=== PATIENT | female | born 1960 | race Asian ===

== ENCOUNTER → 2016-03-11 | Outpatient (CLI) | payer BC ==
[~2016-03-11] MED LIST: ASPEC81 PO; ATOR-24 PO; CLOP1TAB15 PO; DVN160125 PO; ISOS120T5 PO; METH-589 PO; NIFE30TA83 PO; PROP20TA67 PO
[2016-03-11 16:55] LABS: BLOOD UREA NITROGEN 20 mg/dl (7-18); BUN/CREATININE RATIO 18.2 (10-20); CALCIUM 9.1 mg/dl (8.5-10.1); CARBON DIOXIDE 30 mmol/L (21-32); CHLORIDE 105 mmol/L (98-107); GLUCOSE 217 mg/dl (70-99); POTASSIUM 3.1 mmol/L (3.5-5.1); SODIUM 143 mmol/L (136-145)
== END | disposition home or self-care (01) ==
LOC: C.LAB1850 15:50
PROVIDERS: ATTEND Internal Medicine
DX: Z00.00 Encounter for general adult medical examination without abnormal findings (principal); I10 Essential (primary) hypertension; E78.5 Hyperlipidemia, unspecified

== ENCOUNTER → 2016-08-28 | Outpatient (CLI) | payer BC ==
[2016-08-28 12:03] LABS: BASO % 0.7 %; BASO ABS # 0.04 K/uL (0-0.2); COMPLETE YES; HEMATOCRIT 43.6 % (37-47); IG% 0.2 %; LYMPH % 38.1 %; LYMPH ABS # 2.28 K/uL (1.2-3.4); MEAN CELL VOLUME 90.6 fL (80-100); MEAN CORPUSCULAR HEMOGLOBIN 31.4 pg (25-34); MEAN CORPUSCULAR HGB CONC 34.6 g/dl (32-36); MEAN PLATELET VOLUME 10.1 fL (7.4-10.4); MONO % 4.5 %; NEUT % 54.5 %; PLATELET COUNT 240 K/uL (130-400); RED BLOOD COUNT 4.81 M/uL (4.2-5.4); WHITE BLOOD COUNT 5.98 K/uL (4.8-10.8)
[2016-08-28 12:25] LABS: ALT/SGPT 30 U/L (12-78); AST/SGOT 15 U/L (15-37); BLOOD UREA NITROGEN 13 mg/dl (7-18); CALCIUM 9.3 mg/dl (8.5-10.1); CARBON DIOXIDE 28 mmol/L (21-32); CHLORIDE 106 mmol/L (98-107); CHOLESTEROL 123 mg/dl (0-200); CREATININE 0.77 mg/dl (0.60-1.20); GLUCOSE 133 mg/dl (70-99); POTASSIUM 3.7 mmol/L (3.5-5.1); SODIUM 143 mmol/L (136-145); TRIGLYCERIDES 157 mg/dl (0-150); VERY LOW DENSITY LIPOPROT CALC 31 mg/dl
[2016-08-28 12:35] LABS: CHOLESTEROL/HDL RATIO 3.3; HDL CHOLESTEROL 37 mg/dl; LDL CHOLESTEROL CALCULATED 55 mg/dl
== END | disposition home or self-care (01) ==
LOC: C.LAB1850 10:28
PROVIDERS: ATTEND Physician Assistant
DX: I10 Essential (primary) hypertension (principal); E05.90 Thyrotoxicosis, unspecified without thyrotoxic crisis or storm; E78.5 Hyperlipidemia, unspecified

== ENCOUNTER → 2016-09-04 | Outpatient (CLI) | payer BC ==
--- NOTE | 2016-09-07 14:30 | MAMMOGRAPHY REPORT ---
BILATERAL FIRST EVER DIGITAL SCREENING MAMMOGRAM TOMOSYNTHESIS WITH CAD: 09/04/2016 CLINICAL HISTORY: Baseline examination. TECHNIQUE: Breast tomosynthesis in addition to standard 2D mammography was performed. Current study was also evaluated with a Computer Aided Detection (CAD) system. COMPARISON: No prior exams were available for comparison. BREAST COMPOSITION: The tissue of both breasts is heterogeneously dense, which may obscure small mas ses. FINDINGS: No suspicious masses, calcifications, or areas of architectural distortion are noted in ei ther breast. IMPRESSION: ACR BI-RADS CATEGORY 1: NEGATIVE There is no mammographic evidence of malignancy. A 1 year screening mammogram is recommended. The pa tient will receive written notification of the results. Approximately 10% of breast cancers are not detected with mammography. A negative mammographic report should not delay biopsy if a clinically suggestive mass is present. Randa Fuentes M.D. ah/:09/04/2016 16:26:11 Electrician: Daly JC)(Jenn), [facility] letter sent: Normal 1/2 BI-RADS Code: ACR BI-RADS Category 1: Negative
== END | disposition home or self-care (01) ==
LOC: C.MAMM 15:43
PROVIDERS: ATTEND Physician Assistant
DX: Z12.31 Encounter for screening mammogram for malignant neoplasm of breast (principal)

== ENCOUNTER → 2017-04-15 | Outpatient (CLI) | payer OTHER ==
[2017-04-15 09:33] LABS: BASO % 0.7 %; BASO ABS # 0.04 K/uL (0-0.2); EOS % 2.2 %; EOS ABS # 0.12 K/uL (0-0.5); HEMATOCRIT 45.3 % (37-47); HEMOGLOBIN 15.9 g/dL (12.0-16.0); IG# 0.02 K/uL (0.00-0.02); LYMPH % 38.9 %; LYMPH ABS # 2.17 K/uL (1.2-3.4); MEAN CELL VOLUME 89.9 fL (80-100); MEAN CORPUSCULAR HEMOGLOBIN 31.5 pg (25-34); MEAN CORPUSCULAR HGB CONC 35.1 g/dl (32-36); MEAN PLATELET VOLUME 10.1 fL (7.4-10.4); MONO % 4.3 %; MONO ABS # 0.24 K/uL (0.11-0.59); NEUT % 53.5 %; NEUT ABS # 2.99 K/uL (1.4-6.5); PLATELET COUNT 265 K/uL (130-400); RED CELL DISTRIBUTION WIDTH CV 12.8 % (11.5-14.5); RED CELL DISTRIBUTION WIDTH SD 41.6 fL (36.4-46.3); WHITE BLOOD COUNT 5.58 K/uL (4.8-10.8)
[2017-04-15 09:52] LABS: ALT/SGPT 37 U/L (12-78); AST/SGOT 15 U/L (15-37); BLOOD UREA NITROGEN 21 mg/dl (7-18); CALCIUM 9.1 mg/dl (8.5-10.1); CARBON DIOXIDE 29 mmol/L (21-32); CHOLESTEROL 140 mg/dl (0-200); CREATININE 0.84 mg/dl (0.60-1.20); GLUCOSE 230 mg/dl (70-99); POTASSIUM 3.5 mmol/L (3.5-5.1); SODIUM 138 mmol/L (136-145)
[2017-04-15 10:03] LABS: HEMOGLOBIN A1C 7.6 % (4.5-5.6); LDL CHOLESTEROL CALCULATED 70 mg/dl
== END | disposition home or self-care (01) ==
LOC: C.LAB1850 07:42
PROVIDERS: ATTEND Internal Medicine
DX: R73.9 Hyperglycemia, unspecified (principal)

== ENCOUNTER → 2017-05-14 | Outpatient (CLI) | payer OTHER | END | disposition home or self-care (01) | LOC: C.LAB1850 08:24 | PROVIDERS: ATTEND Internal Medicine | DX: E78.5 Hyperlipidemia, unspecified (principal) ==

== ENCOUNTER → 2017-07-15 | Outpatient (CLI) | payer OTHER ==
[2017-07-16 05:50] LABS: HEMOGLOBIN A1C 6.7 % (4.5-5.6)
== END | disposition home or self-care (01) ==
LOC: C.LAB1850 15:48
PROVIDERS: ATTEND Internal Medicine
DX: E78.5 Hyperlipidemia, unspecified (principal)

== ENCOUNTER 2020-07-02 10:42 | Observation (INO) ==
[2020-07-02] MEDS ORDERED: SODIUM CHLORIDE 0.9% 500 ML IV STA (10:58)
[2020-07-02] MEDS ORDERED: ASPIRIN CHEW 324 MG PO STA (10:58)
[2020-07-02] MEDS ORDERED: ONDANSETRON INJ 2 MG/ML 2 ML VIAL IV STA (10:58)
[2020-07-02] MEDS ORDERED: METOPROLOL TARTRATE 1 MG/ML VIAL IV PRN ×2 (11:07→13:03)
--- NOTE | 2020-07-02 11:11 | Emergency Department Note ---
Impression & Plan Paroxysmal atrial fibrillation, Coronary artery disease, Chest pain ED Provider Note NAME: DARNELL MILLER AGE: 59 SEX: F : 1960 ARRIVES VIA: Walk-In INFORMANT: Patient ED PROVIDER(S): Shekhar Zurita DO CHIEF COMPLAINT: chest pain HPI: Patient is a 59-year-old female that presents to the ER for chest pain. Symptoms started around 630 this morning. She felt her heart racing had diffuse chest tightness but worse over the left. Patient admits to some paresthesias on feeling of her right. Forearm. She has shortness of breath with this. She took her morning meds help control her A. fib. Shortly after this she did throw up. She do not see any pills in this. She notes this feels like her previous NM done in 2018. Denies any dysuria urgency or frequency. No swelling of the legs. No other exacerbating or remitting factors. ROS: See above HPI for pertinent positives & negatives. A total of 10 systems reviewed and were otherwise negative. PAST MEDICAL HISTORY:See Below PAST SURGICAL HISTORY:See Below FAMILY HISTORY:See Below SOCIAL HISTORY:See Below HOME MEDICATIONS:See Below ALLERGIES:See Below VITALS:See Below PHYSICAL EXAMINATION: GENERAL: Sitting up in bed, alert, well appearing, well nourished, no distress, non-toxic EYE EXAM: normal conjunctiva. OROPHARYNX: no exudate, no erythema, lips, buccal mucosa, and tongue normal and mucous membranes are moist NECK: supple, no nuchal rigidity, no adenopathy, non-tender LUNGS: Clear to auscultation. Normal chest wall mechanics HEART: Tachycardic and irregular regular, S1 normal and S2 normal ABDOMEN: abdomen soft, non-tender, normo-active bowel sounds, no masses, no rebound or guarding. BACK: Back is symmetrical on inspection and there is no deformity, no midline tenderness, no CVA tenderness. SKIN: no rashes and no bruising UPPER EXTREMITIES: upper extremities are grossly normal. LOWER EXTREMITIES: No pitting edema. Calves are equal bilateral NEURO EXAM: Normal sensorium, cranial nerves II-XII grossly intact, normal speech, no gross weakness of arms, no gross weakness of legs. MEDICAL DECISION MAKING: Patient is a 59-year-old female with a personal story of NM, hypertension, hyperlipidemia, diabetes who presents the ER for feeling her heart race associate with chest pain shortness of breath. IV was established blood work was obtained. Labs show no significant leukocytosis or anemia. BMP with mild hypokalemia. LFTs bilirubin was unremarkable. Troponin was negative. Lipase was unremarkable. Influenza was negative. Patient was given IV Lopressor and heart rate trended down to the low 100s for 130s to 140s. EKG with new ST changes in the inferior and lateral's which I do favor is rate related. Troponin was negative. She is given aspirin. Chest pain resolved. Discussed with the hospitalist admitted for further work-up. Triage Nursing notes reviewed. Limited review of prior medical records performed Vital Signs: reviewed and remarkable for tachycardic Differential diagnosis: A. fib RVR rate of 134 Normal axis Inferior Q waves QTC 480 ST depressions in inferior leads and lateral leads ER treatment provided: See below Diagnostics interpreted by me: ECG: A. fib RVR rate of 134 ST depressions in the inferior leads Inferior Q waves ST waves depressed in lateral leads Cardiac Monitoring: An order was placed for continuous cardiac monitoring. The monitor shows a rate of 135 with sinus rhythm. Laboratory studies: As stated above and show below. Imaging studies: See below Consultation(s): Discussed with the hospitalist for further evaluation Procedures: none Critical Care: I have personally spent 35 minutes of critical care time in the direct management of this patient. This includes bedside care, interpretation of d iagnostic studies, and testing, discussion with consultants, patient, and family members, and other required patient management activities. This 35 minutes is in excess of all separately billable procedures. Past Med/Surg History Medical History (Updated 07/02/20 @ 16:33 by Shekhar Zurita DO) CAD (coronary artery disease) Graves disease Hypertension Hypothyroidism Irregular heartbeat Mixed hyperlipidemia Paroxysmal atrial fibrillation Type II diabetes mellitus Surgical History History of hysterectomy Family History Mother Hypertension Father Coronary heart disease Hypertension Lung cancer Uncle Myocardial infarction Aunt Ovarian cancer Other Family history non-contributory Denies family history of Prostate cancer Breast cancer Colorectal cancer Social History Smoking Status: Never smoker Second Hand Exposure: No; Hx Alcohol Use: No Hx Substance Use: No Preferred Language: Greek Communication Ability: 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 Beliefs That Will Affect Care: None Current Living Situation: Alone Other Information That Helps Us Care for You: No Feels Safe at Home: Yes Safety Concerns: Feels Safe At This Time Assistive Devices: None Allergies Allergies Allergy/AdvReac Type Severity Reaction Status Date / Time No Known Drug Allergies Allergy Verified 07/02/20 13:21 Home Meds Home Medications Medication Instructions Recorded Confirmed multivitamin 1 tab PO QAM 01/09/18 07/02/20 aspirin [Aspir-81] 81 mg PO QAM 07/02/20 07/02/20 atorvastatin [Lipitor] 40 mg PO QAM 07/02/20 07/02/20 losartan-hydrochlorothiazide 1 tab PO QAM 07/02/20 07/02/20 [Hyzaar] metformin 500 mg PO QAM 07/02/20 07/02/20 potassium chloride 10 meq PO QAM 07/02/20 07/02/20 Previous Rx's Medication Instructions Recorded metoprolol succinate 100 mg See Rx Instructions .ROUTE 05/29/20 tablet,extended release 24 hr .COMPLEX #135 tab nifedipine 30 mg tablet,extended 30 mg PO TID #270 tab 06/10/20 release 24 hr Results & Data (ED) Vital Signs Vital Signs - 24 hr 07/02/20 10:47 07/02/20 10:57 07/02/20 11:00 Temperature 36.0 C L Temperature Source Temporal Artery Scan Pulse Rate 71 131 H Pulse Rate from SpO2 Sensor 101 H Pulse Rhythm Irregular Respiratory Rate 24 18 Blood Pressure 115/70 124/85 Blood Pressure Mean 85 98 Blood Pressure Position Sitting Pulse Oximetry 99 89 L Oxygen Delivery Method Room Air Room Air Sepsis Recent Fever Within 48 Hours No Sepsis New/Unexplained Change in Mental Status No Sepsis Action Taken by Nursing No Action Required 07/02/20 11:01 07/02/20 11:10 07/02/20 11:11 Temperature Temperature Source Pulse Rate 131 H 145 H 108 H Pulse Rate from SpO2 Sensor 79 73 Pulse Rhythm Respiratory Rate 27 H 16 19 Blood Pressure 74/53 L Blood Pressure Mean 60 Blood Pressure Position Pulse Oximetry 92 97 97 Oxygen Delivery Method Sepsis Recent Fever Within 48 Hours Sepsis New/Unexplained Change in Mental Status Sepsis Action Taken by Nursing 07/02/20 11:18 07/02/20 11:20 07/02/20 11:21 Temperature Temperature Source Pulse Rate 132 H 143 H 137 H Pulse Rate from SpO2 Sensor 101 H 75 103 H Pulse Rhythm Respiratory Rate 23 17 21 Blood Pressure 133/87 86/70 L Blood Pressure Mean 102 75 Blood Pressure Position Pulse Oximetry 98 97 97 Oxygen Delivery Method Sepsis Recent Fever Within 48 Hours Sepsis New/Unexplained Change in Mental Status Sepsis Action Taken by Nursing 07/02/20 11:22 07/02/20 11:23 07/02/20 11:24 Temperature Temperature Source Pulse Rate 131 H 120 H 141 H Pulse Rate from SpO2 Sensor 85 73 79 Pulse Rhythm Respiratory Rate 18 18 19 Blood Pressure 132/98 110/93 Blood Pressure Mean 109 98 Blood Pressure Position Pulse Oximetry 97 97 96 Oxygen Delivery Method Sepsis Recent Fever Within 48 Hours Sepsis New/Unexplained Change in Mental Status Sepsis Action Taken by Nursing 07/02/20 11:30 07/02/20 11:31 07/02/20 11:40 Temperature Temperature Source Pulse Rate 129 H 116 H 146 H Pulse Rate from SpO2 Sensor 101 H 108 H 116 H Pulse Rhythm Respiratory Rate 19 20 22 Blood Pressure 126/83 Blood Pressure Mean 97 Blood Pressure Position Pulse Oximetry 97 93 97 Oxygen Delivery Method Sepsis Recent Fever Within 48 Hours Sepsis New/Unexplained Change in Mental Status Sepsis Action Taken by Nursing 07/02/20 11:46 07/02/20 11:50 07/02/20 12:00 Temperature Temperature Source Pulse Rate 122 H 105 H 119 H Pulse Rate from SpO2 Sensor 91 H 85 80 Pulse Rhythm Respiratory Rate 14 21 17 Blood Pressure 102/68 110/72 Blood Pressure Mean 79 84 Blood Pressure Position Pulse Oximetry 95 96 94 Oxygen Delivery Method Sepsis Recent Fever Within 48 Hours Sepsis New/Unexplained Change in Mental Status Sepsis Action Taken by Nursing 07/02/20 12:01 07/02/20 12:10 07/02/20 12:15 Temperature Temperature Source Pulse Rate 125 H 129 H 107 H Pulse Rate from SpO2 Sensor 92 H 81 74 Pulse Rhythm Respiratory Rate 15 24 17 Blood Pressure 107/79 Blood Pressure Mean 88 Blood Pressure Position Pulse Oximetry 98 92 93 Oxygen Delivery Method Sepsis Recent Fever Within 48 Hours Sepsis New/Unexplained Change in Mental Status Sepsis Action Taken by Nursing 07/02/20 12:20 07/02/20 12:30 07/02/20 12:31 Temperature Temperature Source Pulse Rate 114 H 113 H 109 H Pulse Rate from SpO2 Sensor 102 H 66 71 Pulse Rhythm Respiratory Rate 22 17 20 Blood Pressure 104/76 Blood Pressure Mean 85 Blood Pressure Position Pulse Oximetry 96 97 97 Oxygen Delivery Method Sepsis Recent Fever Within 48 Hours Sepsis New/Unexplained Change in Mental Status Sepsis Action Taken by Nursing 07/02/20 12:40 07/02/20 12:45 07/02/20 12:46 Temperature Temperature Source Pulse Rate 98 H 121 H 109 H Pulse Rate from SpO2 Sensor 89 77 75 Pulse Rhythm Respiratory Rate 16 19 23 Blood Pressure 119/84 Blood Pressure Mean 95 Blood Pressure Position Pulse Oximetry 95 97 96 Oxygen Delivery Method Sepsis Recent Fever Within 48 Hours Sepsis New/Unexplained Change in Mental Status Sepsis Action Taken by Nursing 07/02/20 12:50 07/02/20 13:00 07/02/20 13:01 Temperature Temperature Source Pulse Rate 109 H 117 H 115 H Pulse Rate from SpO2 Sensor 78 97 H Pulse Rhythm Respiratory Rate 31 H 21 24 Blood Pressure 113/78 Blood Pressure Mean 89 Blood Pressure Position Pulse Oximetry 96 94 95 Oxygen Delivery Method Sepsis Recent Fever Within 48 Hours Sepsis New/Unexplained Change in Mental Status Sepsis Action Taken by Nursing 07/02/20 13:10 07/02/20 13:15 07/02/20 13:20 Temperature Temperature Source Pulse Rate 98 H 108 H 123 H Pulse Rate from SpO2 Sensor 84 76 85 Pulse Rhythm Respiratory Rate 17 17 21 Blood Pressure 120/85 Blood Pressure Mean 96 Blood Pressure Position Pulse Oximetry 93 92 89 L Oxygen Delivery Method Sepsis Recent Fever Within 48 Hours Sepsis New/Unexplained Change in Mental Status Sepsis Action Taken by Nursing 07/02/20 13:30 07/02/20 13:31 07/02/20 13:40 Temperature Temperature Source Pulse Rate 94 H 115 H 102 H Pulse Rate from SpO2 Sensor 82 79 79 Pulse Rhythm Respiratory Rate 19 21 18 Blood Pressure 95/57 L Blood Pressure Mean 69 Blood Pressure Position Pulse Oximetry 95 94 94 Oxygen Delivery Method Sepsis Recent Fever Within 48 Hours Sepsis New/Unexplained Change in Mental Status Sepsis Action Taken by Nursing 07/02/20 13:46 Temperature Temperature Source Pulse Rate 106 H Pulse Rate from SpO2 Sensor 88 Pulse Rhythm Respiratory Rate 19 Blood Pressure 119/80 Blood Pressure Mean 93 Blood Pressure Position Pulse Oximetry 92 Oxygen Delivery Method Sepsis Recent Fever Within 48 Hours Sepsis New/Unexplained Change in Mental Status Sepsis Action Taken by Nursing Laboratory Data Result diagrams: 07/02/20 11:00 07/02/20 11:00 Lab Results 07/02/20 07/02/20 07/02/20 Range/Units 11:00 11:00 12:09 WBC 8.47 (4.8-10.8) K/uL RBC 4.24 (4.2-5.4) M/uL Hgb 13.2 (12.0-16.0) g/dL Hct 37.7 (37-47) % MCV 88.9 (80-100) fL MCH 31.1 (25-34) pg MCHC 35.0 (32-36) g/dL RDW Std Deviation 42.2 (36.4-46.3) fL RDW Coeff of Michelle 13.1 (11.5-14.5) % Plt Count 251 (130-400) K/uL MPV 10.5 H (7.4-10.4) fL Immature Gran % (Auto) 0.1 % Neut % (Auto) 62.4 % Lymph % (Auto) 31.9 % [place] % (Auto) 3.4 % Eos % (Auto) 1.7 % Baso % (Auto) 0.5 % Neut # (Auto) 5.29 (1.4-6.5) K/uL Lymph # (Auto) 2.70 (1.2-3.4) K/uL [place] # (Auto) 0.29 (0.11-0.59) K/uL Eos # (Auto) 0.14 (0-0.5) K/uL Baso # (Auto) 0.04 (0-0.2) K/uL Immature Gran # (Auto) 0.01 (0.00-0.02) K/uL Sodium 139 (136-145) mmol/L Potassium 3.1 L (3.5-5.1) mmol/L Chloride 107 (98-107) mmol/L Carbon Dioxide 22 (21-32) mmol/L Anion Gap 10.0 (3-11) BUN 29 H (7-18) mg/dl Creatinine 1.52 H (0.6-1.2) mg/dl Est Cr Clr Drug Dosing 34.9 ml/min Est GFR ( Amer) 42.7 Est GFR (Non-Af Amer) 36.9 BUN/Creatinine Ratio 18.8 (10-20) Glucose 206 H (70-99) mg/dl Calcium 10.0 (8.5-10.1) mg/dl Magnesium 1.7 L (1.8-2.4) mg/dl Total Bilirubin 0.8 (0.2-1) mg/dl AST 14 L (15-37) U/L ALT 22 (12-78) U/L Alkaline Phosphatase 65 (45-117) U/L Troponin I < 0.015 (0-0.045) ng/ml Total Protein 7.9 (6.4-8.2) gm/dl Albumin 4.0 (3.4-5.0) gm/dl Globulin 3.9 (2.5-4.0) gm/dl Albumin/Globulin Ratio 1.0 (0.9-2) Lipase 222 (73-393) U/L COVID-19 Eval Order CovFluRsv at [facility] SARS-CoV-2 (PCR) (Negative) Influenza Type A (PCR) (Neg) Influenza Type B (PCR) (Neg) RSV (RT-PCR) (Neg) 07/02/20 Range/Units 12:09 WBC (4.8-10.8) K/uL RBC (4.2-5.4) M/uL Hgb (12.0-16.0) g/dL Hct (37-47) % MCV (80-100) fL MCH (25-34) pg MCHC (32-36) g/dL RDW Std Deviation (36.4-46.3) fL RDW Coeff of [place] (11.5-14.5) % Plt Count (130-400) K/uL MPV (7.4-10.4) fL Immature Gran % (Auto) % Neut % (Auto) % Lymph % (Auto) % [place] % (Auto) % Eos % (Auto) % Baso % (Auto) % Neut # (Auto) (1.4-6.5) K/uL Lymph # (Auto) (1.2-3.4) K/uL [place] # (Auto) (0.11-0.59) K/uL Eos # (Auto) (0-0.5) K/uL Baso # (Auto) (0-0.2) K/uL Immature Gran # (Auto) (0.00-0.02) K/uL Sodium (136-145) mmol/L Potassium (3.5-5.1) mmol/L Chloride (98-107) mmol/L Carbon Dioxide (21-32) mmol/L Anion Gap (3-11) BUN (7-18) mg/dl Creatinine (0.6-1.2) mg/dl Est Cr Clr Drug Dosing ml/min Est GFR ( Amer) Est GFR (Non-Af Amer) BUN/Creatinine Ratio (10-20) Glucose (70-99) mg/dl Calcium (8.5-10.1) mg/dl Magnesium (1.8-2.4) mg/dl Total Bilirubin (0.2-1) mg/dl AST (15-37) U/L ALT (12-78) U/L Alkaline Phosphatase (45-117) U/L Troponin I (0-0.045) ng/ml Total Protein (6.4-8.2) gm/dl Albumin (3.4-5.0) gm/dl Globulin (2.5-4.0) gm/dl Albumin/Globulin Ratio (0.9-2) Lipase (73-393) U/L COVID-19 Eval Order SARS-CoV-2 (PCR) NEGATIVE (Negative) Influenza Type A (PCR) Negative (Neg) Influenza Type B (PCR) Negative (Neg) RSV (RT-PCR) Negative (Neg) Administered Medications Discontinued Medications Aspirin (Aspirin Chew 324 Mg) 324 mg PO NOW STA Stop: 07/02/20 10:59 Last Admin: 07/02/20 11:23 Dose: 324 mg Documented by: [id number] Sodium Chloride (Nss) 500 mls @ 999 mls/hr IV .Q31M STA Stop: 07/02/20 11:28 Last Infusion: 07/02/20 11:50 Dose: 999 mls/hr Documented by: [id number] Admin: 07/02/20 11:14 Dose: 999 mls/hr Documented by: [id number] Magnesium Sulfate/Dextrose (Magnesium Sulfate / D5w) 1 gm in 100 mls @ 50 mls/hr IV Q2H STA Stop: 07/02/20 14:40 Last Infusion: 07/02/20 15:10 Dose: 50 mls/hr Documented by: [id number] Admin: 07/02/20 12:59 Dose: 50 mls/hr Documented by: [id number] Metoprolol Tartrate (Metoprolol Tartrate 1 Mg/Ml Vial) 2.5 mg IV Q5M PRN PRN Reason: Tachycardia Stop: 08/01/20 11:28 Last Admin: 07/02/20 12:30 Dose: 2.5 mg Documented by: [id number] Admin: 07/02/20 11:32 Dose: 2.5 mg Documented by: [id number] Ondansetron HCl (Ondansetron Inj 2 Mg/Ml 2 Ml Vial) 4 mg IV NOW STA Stop: 07/02/20 10:59 Last Admin: 07/02/20 11:21 Dose: 4 mg Documented by: [id number] Potassium Chloride (Potassium Chloride Crtab 20 Meq Tabcr) 40 meq PO NOW ONE Stop: 07/02/20 12:42 Last Admin: 07/02/20 13:00 Dose: 40 meq Documented by: [id number] Rivaroxaban (Rivaroxaban 15 Mg Tab) 15 mg PO NOW STA Stop: 07/02/20 13:10 Last Admin: 07/02/20 13:54 Dose: 15 mg Documented by: [id number] Imaging Data Radiologist's Impression: Chest X-Ray 07/02/20 10:58 XR chest 1V portable HISTORY: 59 years-old Female Chest Pain acute atypical chest pain COMPARISON: Chest radiograph 01/09/2018 TECHNIQUE: Portable upright AP view of the chest FINDINGS: Cardiac silhouette is enlarged. No pneumothorax, pleural effusion, airspace consolidation or overt pulmonary edema. Bones of the chest appear grossly intact. IMPRESSION: Cardiomegaly without acute process. ACT 112: Negative or not required by law. The above report was generated using voice recognition software. It may contain grammatical, syntax or spelling errors. Electronically signed by: Won Cardenas M.D. 07/02/2020 12:00 PM Discharge Plan Visit Data Chief Complaint: Cardiac Assessment Stated Complaint: HEART PROBLEMS ED Provider: Shekhar Zurita Discharge Problem: Paroxysmal atrial fibrillation, Coronary artery disease, Chest pain Patient Disposition: Admitted As Inpatient Discharge Instructions Interventions: ED Discharge Assessment Last Done: 07/02/20 15:06 Discharge Problem: Coronary artery disease Qualifiers: Coronary Disease-Associated Artery/Lesion type: [place] artery [place] vs. transplanted heart: unspecified whether [place] or transplanted heart Associated angina: unspecified whether angina present Qualified Code(s): I25.10 - Atherosclerotic heart disease of [place] coronary artery without angina pectoris Chest pain Qualifiers: Chest pain type: unspecified Qualified Code(s): R07.9 - Chest pain, unspecified
[2020-07-02 11:13] LABS: Basophils # (auto) 0.04 K/uL (0-0.2); Basophils % (auto) 0.5 %; Eosinophils # (auto) 0.14 K/uL (0-0.5); Eosinophils % (auto) 1.7 %; Hematocrit (blood only) 37.7 % (37-47); Hemoglobin 13.2 g/dL (12.0-16.0); Immature Granulocytes # (auto) 0.01 K/uL (0.00-0.02); Immature Granulocytes % (auto) 0.1 %; Lymphocytes % (auto) 31.9 %; Mean Corpuscular Hemoglobin 31.1 pg (25-34); Mean Corpuscular Volume 88.9 fL (80-100); Mean Platelet Volume 10.5 fL (7.4-10.4); Monocytes # (auto) 0.29 K/uL (0.11-0.59); Monocytes % (auto) 3.4 %; Neutrophils # (auto) 5.29 K/uL (1.4-6.5); Neutrophils % (auto) 62.4 %; Platelet Count 251 K/uL (130-400); RDW Coefficient of Variation 13.1 % (11.5-14.5); RDW Standard Deviation 42.2 fL (36.4-46.3); Red Blood Count 4.24 M/uL (4.2-5.4); White Blood Count 8.47 K/uL (4.8-10.8)
[2020-07-02 11:30] LABS: Alanine Aminotransferase 22 U/L (12-78); Aspartate Aminotransferase 14 U/L (15-37); BUN Creatinine Ratio 18.8 (10-20); Blood Urea Nitrogen 29 mg/dl (7-18); Carbon Dioxide 22 mmol/L (21-32); Chloride 107 mmol/L (98-107); Creatinine Clr Calc Pharmacy 34.9 ml/min; Est GFR (African American) 42.7; Est GFR (Non-African American) 36.9; Glucose 206 mg/dl (70-99); Lipase 222 U/L (73-393); Potassium 3.1 mmol/L (3.5-5.1); Sodium 139 mmol/L (136-145)
[2020-07-02] MEDS: METOPROLOL TARTRATE 1 MG/ML VIAL IV PRN ×2 (11:32→12:30)
[2020-07-02 11:37] LABS: Alkaline Phosphatase 65 U/L (45-117); Bilirubin,Total 0.8 mg/dl (0.2-1); Globulin 3.9 gm/dl (2.5-4.0); Total Protein 7.9 gm/dl (6.4-8.2); Troponin I < 0.015 ng/ml (0-0.045)
--- NOTE | 2020-07-02 12:01 | XRay Report ---
XR chest 1V portable HISTORY: 59 years-old Female Chest Pain acute atypical chest pain COMPARISON: Chest radiograph 01/09/2018 TECHNIQUE: Portable upright AP view of the chest FINDINGS: Cardiac silhouette is enlarged. No pneumothorax, pleural effusion, airspace consolidation or overt pu lmonary edema. Bones of the chest appear grossly intact. IMPRESSION: Cardiomegaly without acute process. ACT 112: Negative or not required by law. The above report was generated using voice recognition software. It may contain grammatical, syntax o r spelling errors. Electronically signed by: Won Cardenas M.D. 07/02/2020 12:00 PM
[2020-07-02 12:33] LABS: Magnesium 1.7 mg/dl (1.8-2.4)
[2020-07-02] MEDS ORDERED: POTASSIUM CHLORIDE CRTAB 20 MEQ TABCR PO ONE (12:41)
[2020-07-02] MEDS ORDERED: MAGNESIUM SULFATE / D5W 1 GM/100 ML BAG IV STA (12:41)
[2020-07-02] MEDS ORDERED: RIVAROXABAN 15 MG TAB PO STA (13:09)
[2020-07-02] MEDS ORDERED: RIVAROXABAN 20 MG TAB PO SCH (13:15)
--- NOTE | 2020-07-02 13:29 | History & Physical Report ---
Date of Service July 02, 2020 Assessment & Plan (1) Afib: Presented with symptomatic, rapid atrial fibrillation with heart rates in the 140s-150s Patient with history of palpitations and a medical stress test that had short lived episode of AFIB, but has never had it on record since. She follows with Dr. Vo normally and since afib is identified, she should be placed on anticoagulation. - Patient with CRCL 32- after discussion with the patient she was started on Xarelto 15 mg x1 now and then daily - Rate control with her Toprol 150 PO daily - Metoprolol IV 5 mg PRN HR >110 - if further rate control is needed can add 1 25mg dose of short acting metoprolol - Mag 1.7 replace magnesium- 2 grams - K 3.1 - replace potassium with 40 meq K - Monitor telemetry overnight -consulted cardiology (2) Coronary artery disease: Patient underwent cath with PCI in 2018 - KUMAR to ramus, non-obstructing CAD with RCA and small OM1 - Continue ASA - Continue high dose atorvastatin 40 mg - Patient reports she does not have any nitroglycerin at home - Trend Troponin I and ECG- st depression in anterior - Currently chest pain free and n/v free (3) Hypertension: Continue - losartan HCTZ - Continue nifedipine 30 mg PO TID--- Patient reports she takes all her Nifedipine in morning so will change to QD - Goal <130 (4) Dyslipidemia: As above continue high dose statin (5) CKD (chronic kidney disease), stage III: Baseline CKD III - ROUSTABOUT HEAD 1.52- normal 1.2-1.4 - BMP in morning- may need to hold ARB and HCTZ - Ensure euvolemia (6) Type II diabetes mellitus: Hold Metformin while admitted - placed on SSI correction factor 35; 1:15 (7) Hyperthyroidism: Previous notes from 2011 reviewed state that patient was previously hyperthyroid and was managed with Tapazole and seen by endocrinology with Dr. Mullen She stopped Tapazole sometime around 2011 due to weight gain and continues without therapy- TSH with reflex T4 in morning - 0.9-1.8 trend over past 2 years (8) Hypokalemia: Potassium 3.1 and consistently low over many years Replacing now as above and continue daily dose in the morning Follow BMP, magnesium (9) Hypomagnesemia: Replacing with 1 g of IV magnesium sulfate Follow level in the morning (10) DVT prophylaxis: Xarelto starting as above Disposition-admit to PCU on observation History of Present Illness Primary Care Provider: Hernandez Abreu MD 59 YOF with history of; HTN, CAD with stent in 2018, palpitations, paroxysmal afib (not previously caught on telemetry or EKG), HLD, DMII, CKD III, Graves disease/hyperthyroidism (not on treatment has not been on therapy since ~2011 wh en was on Tapazole). Patient comes to the emergency room today after being awoken at 0600 with palpitations and fast heart rate, that was associated with chest pressure to her left upper chest wall. She got up took all her medications and the chest pain went away at 0800. She then went to work where she also had an episodes of n/v and felt her heart racing again so she came to the ER. The patient vomited around 1100. She has had no other episodes of chest pain other than this episode this morning that she can recall since her stent. She has no orthopnea, but has mild leg swelling by the end of the day that is normal when she gets up in the morning. She has not activity induced dyspnea. In the ER she remains CP free, was given 2.5 mg IV Lopressor for her afib with RVR with heart rates in the 140s-150s which brought her HR to 80-110 and remains in afib. She had an ECG done with no acute changes and troponin <0.015 at this time. She will be admitted for rate control, started on DOAC, electrolytes replaced. She follows with Dr. Vo who is on service at this time so cardiology will be consulted. I had a discussion with Mrs. Chamorro regarding her options for anticoagulation with CHADS VASC-2 2. We discussed her risk of stroke in relation to afib as well as VKA vs DOAC to include risks and benefits of each agent and bleeding risks for each. We also discussed what would occur if bleeding did occur with each agent. Answered all questions for patient and came to shared decision of DOAC Xarelto with her renal function once daily of 15mg. Allergies Allergy/AdvReac Type Severity Reaction Status Date / Time No Known Drug Allergies Allergy Verified 07/02/20 13:21 Home Medications Medication Instructions Recorded Confirmed Type multivitamin 1 tab PO QAM 01/09/18 07/02/20 History metoprolol succinate 100 mg See Rx Instructions .ROUTE 05/29/20 07/02/20 Rx tablet,extended release 24 hr .COMPLEX #135 tab nifedipine 30 mg tablet,extended 30 mg PO TID #270 tab 06/10/20 07/02/20 Rx release 24 hr aspirin [Aspir-81] 81 mg PO QAM 07/02/20 07/02/20 History atorvastatin [Lipitor] 40 mg PO QAM 07/02/20 07/02/20 History losartan-hydrochlorothiazide 1 tab PO QAM 07/02/20 07/02/20 History [Hyzaar] metformin 500 mg PO QAM 07/02/20 07/02/20 History potassium chloride 10 meq PO QAM 07/02/20 07/02/20 History Past Med/Surg History Medical History (Updated 07/02/20 @ 20:28 by Ramonita Olivier MD) CAD (coronary artery disease) Graves disease Hypertension Hyperthyroidism Hypokalemia Hypothyroidism Irregular heartbeat Mixed hyperlipidemia Paroxysmal atrial fibrillation Type II diabetes mellitus Surgical History History of hysterectomy Family History Mother Hypertension Father Coronary heart disease Hypertension Lung cancer Uncle Myocardial infarction Aunt Ovarian cancer Other Family history non-contributory Denies family history of Prostate cancer Breast cancer Colorectal cancer Social History Smoking Status: Never smoker Second Hand Exposure: No; Hx Alcohol Use: No Hx Substance Use: No Preferred Language: Spanish Communication Ability: Effective Field Professional Required: No Beliefs That Will Affect Care: None Current Living Situation: Alone Other Information That Helps Us Care for You: No Feels Safe at Home: Yes Safety Concerns: Feels Safe At This Time Assistive Devices: None Review of Systems Review of Systems: REVIEW OF SYSTEMS: Constitutional: No fever, sweats or chills Eyes: No diplopia, no worsening or blurred vision ENT: normal hearing, no trouble swallowing Respiratory: No cough, sputum, dyspnea at rest or on exertion Cardiovascular: (+) palpitations; resolved, chest pain, tightness Abdomen: No pain, resolved nausea, vomiting, no diarrhea or constipation Musculoskeletal: No joint pain, calf pain, swelling Neurologic: No weakness, numbness/tingling, or balance problems Psychiatric: No anxiety or depression Skin: No rash or itch Physical Exam Physical Exam: PHYSICAL EXAM: General: awake, alert, no apparent distress Head: Normocephalic, atraumatic ENT: PERRLA, EOMI, no pharyngeal exudate, mucous membranes moist Neuro: AAO x 3, speech clear and appropriate, strength intact bilaterally 5/5, sensation intact and equal all extremities and dermatomes, no pronator drift Chest: equal rise and fall of the chest, no accessory muscle use, no heaves or thrills, Clear to auscultation, on room air, Cardiac: Regular rate and rhythm, telemetry reviewed, skin warm dry, cap refill <3 seconds, peripheral pulses +2 no JVD, no murmur, trace edema to lower extremities GI: NABS x 4 quadrants, soft, nontender to palpation, no rebound, guarding or tenderness : Spontaneously voiding, no pain, no CVA tenderness, Extremities: Normal inspection, no peripheral edema or erythema, calfs nontender to palpation Psych: Normal mood and affect Skin: no rash or erythema Results & Data Results & Data ([facility]) Vital Signs (Past 12 Hours) Vital Signs Temp Pulse Resp BP Pulse Ox 07/02/20 12:45 121 H 19 119/84 97 07/02/20 12:40 98 H 16 95 07/02/20 12:31 109 H 20 97 07/02/20 12:30 113 H 17 104/76 97 07/02/20 12:20 114 H 22 96 07/02/20 12:15 107 H 17 107/79 93 07/02/20 12:10 129 H 24 92 07/02/20 12:01 125 H 15 98 07/02/20 12:00 119 H 17 110/72 94 07/02/20 11:50 105 H 21 96 07/02/20 11:46 122 H 14 102/68 95 07/02/20 11:40 146 H 22 97 07/02/20 11:31 116 H 20 93 07/02/20 11:30 129 H 19 126/83 97 07/02/20 11:24 141 H 19 110/93 96 07/02/20 11:23 120 H 18 97 07/02/20 11:22 131 H 18 132/98 97 07/02/20 11:21 137 H 21 97 07/02/20 11:20 143 H 17 86/70 L 97 07/02/20 11:18 132 H 23 133/87 98 07/02/20 11:11 108 H 19 97 07/02/20 11:10 145 H 16 74/53 L 97 07/02/20 11:01 131 H 27 H 92 07/02/20 10:57 131 H 18 124/85 89 L 07/02/20 10:47 36.0 C L 71 24 115/70 99 Laboratory Results Abnormal lab results 07/02/20 07/02/20 Range/Units 11:00 11:00 MPV 10.5 H (7.4-10.4) fL Potassium 3.1 L (3.5-5.1) mmol/L BUN 29 H (7-18) mg/dl Creatinine 1.52 H (0.6-1.2) mg/dl Glucose 206 H (70-99) mg/dl Magnesium 1.7 L (1.8-2.4) mg/dl AST 14 L (15-37) U/L Diagnostic Findings XR chest 1V portable HISTORY: 59 years-old Female Chest Pain acute atypical chest pain COMPARISON: Chest radiograph 01/09/2018 TECHNIQUE: Portable upright AP view of the chest FINDINGS: Cardiac silhouette is enlarged. No pneumothorax, pleural effusion, airspace consolidation or overt pulmonary edema. Bones of the chest appear grossly intact. IMPRESSION: Cardiomegaly without acute process. Medications Administered Magnesium Sulfate/Dextrose (Magnesium Sulfate / D5w) 1 gm in 100 mls @ 50 mls/hr IV Q2H STA Stop: 07/02/20 14:40 Last Admin: 07/02/20 12:59 Dose: 50 mls/hr Documented by: [id number] Metoprolol Tartrate (Metoprolol Tartrate 1 Mg/Ml Vial) 2.5 mg IV Q5M PRN PRN Reason: Tachycardia Stop: 08/01/20 11:28 Last Admin: 07/02/20 12:30 Dose: 2.5 mg Documented by: [id number] Admin: 07/02/20 11:32 Dose: 2.5 mg Documented by: [id number] Discontinued Medications Aspirin (Aspirin Chew 324 Mg) 324 mg PO NOW STA Stop: 07/02/20 10:59 Last Admin: 07/02/20 11:23 Dose: 324 mg Documented by: [id number] Sodium Chloride (Nss) 500 mls @ 999 mls/hr IV .Q31M STA Stop: 07/02/20 11:28 Last Infusion: 07/02/20 11:50 Dose: 999 mls/hr Documented by: [id number] Admin: 07/02/20 11:14 Dose: 999 mls/hr Documented by: [id number] Ondansetron HCl (Ondansetron Inj 2 Mg/Ml 2 Ml Vial) 4 mg IV NOW STA Stop: 07/02/20 10:59 Last Admin: 07/02/20 11:21 Dose: 4 mg Documented by: [id number] Potassium Chloride (Potassium Chloride Crtab 20 Meq Tabcr) 40 meq PO NOW ONE Stop: 07/02/20 12:42 Last Admin: 07/02/20 13:00 Dose: 40 meq Documented by: [id number] Home Medications multivitamin 1 tab PO QA 01/09/18 [History Confirmed 07/02/20] metoprolol succinate 100 mg tablet,extended release 24 hr See Rx Instructions .ROUTE .COMPLEX #135 tab 05/29/20 [Rx Confirmed 07/02/20] nifedipine 30 mg tablet,extended release 24 hr 30 mg PO TID #270 tab 06/10/20 [Rx Confirmed 07/02/20] aspirin [Aspir-81] 81 mg PO QAM 07/02/20 [History Confirmed 07/02/20] atorvastatin [Lipitor] 40 mg PO QAM 07/02/20 [History Confirmed 07/02/20] losartan-hydrochlorothiazide [Hyzaar] 1 tab PO QAM 07/02/20 [History Confirmed 07/02/20] metformin 500 mg PO QAM 07/02/20 [History Confirmed 07/02/20] potassium chloride 10 meq PO QAM 07/02/20 [History Confirmed 07/02/20] Active Medications Magnesium Sulfate/Dextrose (Magnesium Sulfate / D5w) 1 gm in 100 mls @ 50 mls/hr IV Q2H STA Stop: 07/02/20 14:40 Last Admin: 07/02/20 12:59 Dose: 50 mls/hr Documented by: Metoprolol Tartrate (Metoprolol Tartrate 1 Mg/Ml Vial) 2.5 mg IV Q5M PRN PRN Reason: Tachycardia Stop: 08/01/20 11:28 Last Admin: 07/02/20 12:30 Dose: 2.5 mg Documented by: Metoprolol Tartrate (Metoprolol Tartrate 1 Mg/Ml Vial) 5 mg IV Q4 PRN PRN Reason: Tachycardia >110 Stop: 08/01/20 13:02 Rivaroxaban (Rivaroxaban 15 Mg Tab) 15 mg PO DAILY PACO Stop: 08/02/20 08:59 ECG Additional Comments: Atrial fibrillation with rapid ventricular response Possible Inferior infarct (cited on or before 09-JAN-2018) Abnormal ECG When compared with ECG of 10-JAN-2018 16:07, Atrial fibrillation has replaced Sinus rhythm Vent. 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 In the ER she was found to have rapid atrial fibrillation with heart rates in the 140s 150s. She was given IV Lopressor and her heart rates are improved to the low 100s. She did take all of her morning medications but vomited about 3 hours later this morning. Her initial troponin was negative, ECG showed rapid atrial fibrillation with some ST T wave changes while tachycardic but she is currently chest pain-free at the time of admission. She was significantly hypokalemic and mildly hypomagnesemic. She denies any further nausea or vomiting, no lightheadedness now but did feel little bit earlier. She has no history of bleeding problems and is willing to start on anticoagulation. History and ROS reviewed as above Vitals reviewed Gen: AAOx3, NAD HEENT: Anicteric sclerae, EOMI CV: Irregularly irregular, mildly tachycardic, no mgr nl S1S2 Pulm: CTAB no wcr Abd: +BS soft NT ND no masses or hernias Ext: No edema, 2+ DP pulses Skin: No rashes, warm/dry Neuro: Full strength throughout Laboratory values reviewed, ECG reviewed, chest x-ray reviewed 59-year-old female here with rapid atrial fibrillation that is symptomatic with chest pressure radiating to the right arm and a history of CAD. -Admit for rate control, electrolyte replacement, and to trend serial troponins given chest pressure along with rapid atrial fibrillation Continue home metoprolol succinate, follow on telemetry Begin anticoagulation with Xarelto Consult cardiology We will add on an additional 20 mEq potassium chloride this evening and increase her daily dose to 20 mEq She likely has hypokalemia from chronic HCTZ use Check TSH PG Care Time/CCT Total # of Minutes Spent Total Time Spent with Patient: Total time spent is greater than 50% in coordination of care (as documented) at patient's floor/unit and/or counseling patient: Coding Level of Care Code 45013 OBS Care - Level 3 Diagnoses Afib I48.91 Atrial fibrillation type: unspecified Coronary artery disease I25.10 Associated angina: without angina Coronary Disease-Associated Artery/Lesion type: [place] artery [place] vs. 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 use Hyperthyroidism E05.90 Hypokalemia E87.6 Hypomagnesemia E83.42 DVT prophylaxis Z29.9 (1) Type II diabetes mellitus Diabetes mellitus complication status: with other specified complication Diabetes mellitus snf insulin use: without long haul truck driver use Qualified Code(s): E11.69 - Type 2 diabetes mellitus with other specified complication (2) CKD (chronic kidney disease), stage III Chronic kidney disease stage 3 subtype: stage 3b (GFR 30-44) Qualified Code(s): N18.32 - Chronic kidney disease, stage 3b (3) Coronary artery disease Associated angina: without angina Coronary Disease-Associated Artery/Lesion type: [place] artery [place] vs. transplanted heart: [place] heart Qualified Code(s): I25.10 - Atherosclerotic heart disease of [place] coronary artery without angina pectoris (4) Afib Atrial fibrillation type: unspecified Qualified Code(s): I48.91 - Unspecified atrial fibrillation (5) Hypertension Hypertension type: essential hypertension Qualified Code(s): I10 - Essential (primary) hypertension
[2020-07-02 13:41] LABS: Influenza A virus by PCR Negative (Neg); Influenza B virus by PCR Negative (Neg); RSV by PCR Negative (Neg); SARS CoV2 RNA(COVID-19) InHosp NEGATIVE (Negative)
[2020-07-02] MEDS ORDERED: DEXTROSE 50% 50 ML SYRINGE IV PRN (16:04)
[2020-07-02] MEDS ORDERED: GLUCAGON FOR INJ 1 MG VIAL SQ PRN (16:04)
[2020-07-02] MEDS ORDERED: ONDANSETRON INJ 2 MG/ML 2 ML VIAL IV PRN (16:04)
[2020-07-02] MEDS ORDERED: CARBOHYDRATES FOR HYPOGLYCEMIA PO PRN (16:04)
[2020-07-02] MEDS ORDERED: NITROGLYCERIN SL 0.4 MG/TAB TAB SL PRN (16:04)
[2020-07-02] MEDS ORDERED: POLYETHYLENE (MIRALAX) 17 GM PACK PO PRN (16:04)
[2020-07-02] MEDS ORDERED: GLUCOSE 40% GEL 15 GM TUBE PO PRN (16:04)
[2020-07-02] MEDS ORDERED: GLUCOSE 10 TABS/TUBE PO PRN (16:04)
[2020-07-02] MEDS: METOPROLOL SUCC 50MG EXT REL TAB PO SCH (16:41)
[2020-07-02] MEDS: INSULIN ASPART 100 UNITS/ML 3 ML PEN SC SCH ×2 (16:49→21:08)
[2020-07-02 18:35] LABS: Thyroid Stimulating Hormone 0.682 uIu/ml (0.300-4.500); Troponin I 0.037 ng/ml (0-0.045)
[2020-07-02] MEDS ORDERED: POTASSIUM CHLORIDE CRTAB 20 MEQ TABCR PO STA (20:14)
[2020-07-03 07:16] LABS: Basophils # (auto) 0.01 K/uL (0-0.2); Basophils % (auto) 0.2 %; Eosinophils # (auto) 0.13 K/uL (0-0.5); Eosinophils % (auto) 2.2 %; Hemoglobin 11.4 g/dL (12.0-16.0); Immature Granulocytes # (auto) 0.01 K/uL (0.00-0.02); Immature Granulocytes % (auto) 0.2 %; Lymphocytes # (auto) 2.28 K/uL (1.2-3.4); Lymphocytes % (auto) 37.9 %; Mean Corpuscular Hemoglobin 31.1 pg (25-34); Mean Corpuscular Hgb Conc 34.5 g/dL (32-36); Mean Corpuscular Volume 89.9 fL (80-100); Mean Platelet Volume 9.9 fL (7.4-10.4); Monocytes # (auto) 0.32 K/uL (0.11-0.59); Monocytes % (auto) 5.3 %; Neutrophils # (auto) 3.26 K/uL (1.4-6.5); Neutrophils % (auto) 54.2 %; Platelet Count 190 K/uL (130-400); RDW Coefficient of Variation 13.2 % (11.5-14.5); RDW Standard Deviation 42.8 fL (36.4-46.3); Red Blood Count 3.67 M/uL (4.2-5.4); White Blood Count 6.01 K/uL (4.8-10.8)
[2020-07-03 07:56] LABS: BUN Creatinine Ratio 22.5 (10-20); Calcium 9.2 mg/dl (8.5-10.1); Creatinine Clr Calc Pharmacy 48.6 ml/min; Est GFR (African American) 63.2; Est GFR (Non-African American) 54.5; Potassium 3.1 mmol/L (3.5-5.1)
--- NOTE | 2020-07-03 08:04 | Electrocardiogram Report ---
Test Reason : Blood Pressure : / mmHG Vent. Rate : 134 BPM Atrial Rate : 136 BPM P-R Int : 000 ms QRS Dur : 088 ms QT Int : 322 ms P-R-T Axes : 000 081 -30 degrees QTc Int : 480 ms Atrial fibrillation with rapid ventricular response Possible Old Inferior infarct (cited on or before 09-JAN-2018) ST depression in Anterolateral leads ,ischemia vs. rate related Abnormal ECG When compared with ECG of 10-JAN-2018 16:07, Atrial fibrillation has replaced Sinus rhythm Vent. rate has increased BY [address] now depressed in Anterolateral leads Confirmed by Corby Drummond ([id number]) on 07/03/2020 8:03:46 AM Referred By: REFERRED SELF Confirmed By:Corby Drummond
[2020-07-03] MEDS: INSULIN ASPART 100 UNITS/ML 3 ML PEN SC SCH ×2 (08:10→12:14)
[2020-07-03] MEDS: METOPROLOL SUCC 50MG EXT REL TAB PO SCH (08:12)
[2020-07-03] MEDS ORDERED: POTASSIUM CHLORIDE CRTAB 20 MEQ TABCR PO STA (08:44)
--- NOTE | 2020-07-03 08:48 | Electrocardiogram Report ---
Test Reason : Blood Pressure : / mmHG Vent. Rate : 072 BPM Atrial Rate : 072 BPM P-R Int : 142 ms QRS Dur : 096 ms QT Int : 362 ms P-R-T Axes : 152 140 146 degrees QTc Int : 396 ms Suspect arm lead reversal, interpretation assumes no reversal Unusual P axis, possible ectopic atrial rhythm Left posterior fascicular block Old Inferior infarct (cited on or before 09-JAN-2018) Diffuse Nonspecific T wave abnormality Abnormal ECG When compared with ECG of 02-JUL-2020 10:55, Atrial fibrillation no longer present HR has decreased by [address] depression in Anterolateral leads no longer present Confirmed by Corby Drummond ([id number]) on 07/03/2020 8:47:43 AM Referred By: REFERRED SELF Confirmed By:Corby Drummond
--- NOTE | 2020-07-03 08:57 | Electrocardiogram Report ---
Test Reason : Blood Pressure : / mmHG Vent. Rate : 063 BPM Atrial Rate : 063 BPM P-R Int : 174 ms QRS Dur : 092 ms QT Int : 448 ms P-R-T Axes : 043 050 052 degrees QTc Int : 458 ms Normal sinus rhythm Old Inferior infarct (cited on or before 09-JAN-2018) Diffuse Minor Nonspecific T wave abnormality Abnormal ECG When compared with ECG of 02-JUL-2020 19:43, Prior tracing likely had limb lead reversal, now corrected Otherwise no significant change Confirmed by Corby Drummond ([id number]) on 07/03/2020 8:57:14 AM Referred By: REFERRED SELF Confirmed By:Corby Drummond
[2020-07-03] MEDS ORDERED: RIVAROXABAN 15 MG TAB PO SCH (09:00)
[2020-07-03] MEDS ORDERED: NIFEdipine EXTENDED REL 30 MG TABCR PO SCH (09:00)
[2020-07-03] MEDS ORDERED: ATORVASTATIN 40 MG TAB PO SCH (09:00)
[2020-07-03] MEDS ORDERED: POTASSIUM CHLORIDE CRTAB 20 MEQ TABCR PO SCH (09:00)
[2020-07-03] MEDS ORDERED: ASPIRIN 81 MG ECTAB PO SCH (09:00)
[2020-07-03] MEDS ORDERED: LOSARTAN/HCTZ 50/12.5MG TAB PO SCH (09:00)
[2020-07-03] MEDS ORDERED: POTASSIUM CHLORIDE 10 MEQ TABCR PO SCH (09:00)
--- NOTE | 2020-07-03 09:00 | Electrocardiogram Report ---
Test Reason : Blood Pressure : / mmHG Vent. Rate : 060 BPM Atrial Rate : 060 BPM P-R Int : 180 ms QRS Dur : 092 ms QT Int : 452 ms P-R-T Axes : 047 048 041 degrees QTc Int : 452 ms Normal sinus rhythm Old Inferior infarct (cited on or before 09-JAN-2018) Diffuse Minor Nonspecific T wave abnormality Abnormal ECG When compared with ECG of 02-JUL-2020 22:01, No significant change was found Confirmed by Corby Drummond ([id number]) on 07/03/2020 9:00:19 AM Referred By: REFERRED SELF Confirmed By:Corby Drummond
--- NOTE | 2020-07-03 09:49 | Cardiology Consultation ---
Date of Consultation July 03, 2020 Assessment & Plan (1) Paroxysmal atrial fibrillation: She has a history of rare relatively brief episodes of atrial fibrillation, she is quite symptomatic however when she gets them. Her only rate control medication as an outpatient is metoprolol succinate 100 mg daily which she tells me she has been taking. I am hesitant to use antiarrhythmic therapy for her arrhythmia since it is so infrequent, but additional rate control medications would probably be indicated. I would recommend continuing metoprolol succinate 150 mg daily to help with rate control. As far as anticoagulation it is a somewhat difficult question. Although technically her [id number] score is perhaps 3 due to female gender (which probably does not convey the risk of the full point that it is assigned), coronary artery disease although without a prior AR and hypertension, however with infrequent relatively brief episodes of atrial fibrillation she may not derive much benefit from chronic anticoagulation. Additionally she has an increased risk of bleeding since she is on a platelet inhibitor for her coronary artery disease. Perhaps for the short-term she should be on an anticoagulant, I would recommend Eliquis not Xarelto although both would probably work. She has an appointment with Dr. Roche tomorrow so I would let him make the final determination as to what her anticoagulation regimen should be. (2) Coronary artery disease: She has known coronary disease which is asymptomatic in general however with atrial fibrillation and this rapid heart rate she did have a slight enzyme leak as well as chest discomfort. I believe this is consistent with demand ischemia and would not pursue further evaluation. (3) Chest pain: She had chest discomfort with the arrhythmia, it is possible it was just the arrhythmia causing the discomfort but it may have triggered angina due to the rapid heart rate. Going up on the metoprolol hopefully will help with that. History of Present Illness Reason for Consultation: Atrial fibrillation Attending Physician: Aquiles Talbert MD History of Present Illness This is a 59-year-old woman who has a history of atrial fibrillation as well as coronary artery disease historically. Her atrial fibrillation is well documented but occurred in the setting of severe hypertension, hyperthyroidism and profound anemia. She also had a cardiac enzyme leak at the time, her peak troponin was 2.38. She subsequently had a nuclear stress test on March 22, 2012, this suggested a small area of ischemia in the anterior wall versus breast attenuation but her ejection fraction was normal as was her ejection fraction on echocardiography. She had no wall motion abnormalities on echocardiography in 2012. She has not followed up regularly with cardiology, so we do not have much information between 2012 and 2017 and she had not had cardiac testing to my knowledge (other than occasional electrocardiograms). She did have minor Q waves on her electrocardiograms inferiorly in 2011, however they had become more prominent. She had been treated for hypertension, she did not have much in the way of chest discomfort but then had several episodes associated with palpitations in December 2017. She felt they were similar to what she had in 2012 when she had her atrial fibrillation. She did check her pulse which was irregular and about 90 bpm. During this episode she was short of breath, had chest discomfort and had palpitations. She took a nitroglycerin with relief of the discomfort. On the morning of January 09, 2018 she developed her typical symptoms of palpitations as well as chest discomfort. This lasted about 2 hours during which she took a sublingual nitroglycerin with relief ultimately. She did not come into the emergency room until several hours later however and was in sinus rhythm then and subsequently. Her symptoms however had resolved. She was agreeable to catheterization which was performed on January 10, 2018. Severe coronary disease was identified for which she had stent placement in the ramus vessel. She was discharged for plans of follow-up however I did not see her again until 05/15/2019 and I had planned to see her in 6 months after that but have not seen her since. At home she is on metoprolol succinate 100 mg daily for rate control, typically she has not been hypertensive. Her [id number] score therefore has been 1 and 3 (female gender and possible hypertension with coronary disease although no AR) and anticoagulation is a consideration but remains somewhat optional. She presents now with a feeling of a racing heartbeat and associated chest discomfort starting at around 6:30 AM on July 02, 2020. Her initial troponin was unremarkable at less than 0.015, repeated 6 hours later it was 0.037 and 6 hours after that was 0.056. An electrocardiogram done on 07/02/2020 at 1055 showed atrial fibrillation with a heart rate of 134 bpm with some anterolateral ST depression. She was admitted, started on Xarelto and given additional rate control medications. She converted spontaneously to sinus rhythm at around 6 PM. A follow-up electrocardiogram on 07/02/2020 at 1943 shows sinus rhythm without significant ST-T abnormalities. An echocardiogram done today is essentially normal. Left ventricular function is normal with an ejection fraction of 70% and there are no wall motion abnormalities. She is quite clear about when her arrhythmia started and she does not believe she has had it at all since 2018. She has not had exertional chest discomfort although she is not terribly active. She does describe shortness of breath with walking up steps. Allergies Allergy/AdvReac Type Severity Reaction Status Date / Time No Known Drug Allergies Allergy Verified 07/02/20 13:21 Home Medications Medication Instructions Recorded Confirmed Type multivitamin 1 tab PO QAM 01/09/18 07/02/20 History metoprolol succinate 100 mg See Rx Instructions .ROUTE 05/29/20 07/02/20 Rx tablet,extended release 24 hr .COMPLEX #135 tab nifedipine 30 mg tablet,extended 30 mg PO TID #270 tab 06/10/20 07/02/20 Rx release 24 hr aspirin [Aspir-81] 81 mg PO QAM 07/02/20 07/02/20 History atorvastatin [Lipitor] 40 mg PO QAM 07/02/20 07/02/20 History losartan-hydrochlorothiazide 1 tab PO QAM 07/02/20 07/02/20 History [Hyzaar] metformin 500 mg PO QAM 07/02/20 07/02/20 History potassium chloride 10 meq PO QAM 07/02/20 07/02/20 History Patient History Medical History CAD (coronary artery disease) Graves disease Hypertension Hyperthyroidism Hypokalemia Hypothyroidism Irregular heartbeat Mixed hyperlipidemia Paroxysmal atrial fibrillation Type II diabetes mellitus Surgical History History of hysterectomy Family History Mother Hypertension Father Coronary heart disease Hypertension Lung cancer Uncle Myocardial infarction Aunt Ovarian cancer Other Family history non-contributory Denies family history of Prostate cancer Breast cancer Colorectal cancer Social History Smoking Status: Never smoker Second Hand Exposure: No; Hx Alcohol Use: No Hx Substance Use: No Preferred Language: Indonesian Communication Ability: Effective Finisher Wallboard And Plasterboard Required: No Beliefs That Will Affect Care: None Current Living Situation: Alone Other Information That Helps Us Care for You: No Feels Safe at Home: Yes Safety Concerns: Feels Safe At This Time Assistive Devices: None Review of Systems Review of Systems: All systems reviewed & are unremarkable except as noted in HPI & below Physical Exam Physical Exam: Constitutional: Alert, cooperative and in no distress. HEENT: Unremarkable Neck: No jugular venous distention, carotid pulses are normal and equal bilaterally without bruits. Pulmonary: Clear to auscultation bilaterally. Cardiac: Regular rhythm with no murmur, gallop or rub. Abdomen: Soft, nontender with normal bowel sounds. Extremities: No edema. Distal pulses intact. Neurologic: No focal findings. Gait is steady. Skin: No rash, ecchymoses or petechiae. Results & Data ([facility]) Vital Signs (Past 12 Hours) Vital Signs Temp Pulse Pulse Resp BP Pulse Ox 07/03/20 07:08 36.5 C 58 L 18 148/82 H 94 07/03/20 03:07 37.1 C 65 19 122/77 97 07/02/20 22:51 36.8 C 61 17 123/75 97 07/02/20 22:50 64 Laboratory Results Cardiac Enzymes 07/02/20 07/02/20 07/02/20 Range/Units 11:00 17:36 23:07 AST 14 L (15-37) U/L Troponin I < 0.015 0.037 0.056 H* (0-0.045) ng/ml CBC 07/02/20 07/03/20 Range/Units 11:00 07:01 WBC 8.47 6.01 (4.8-10.8) K/uL RBC 4.24 3.67 L (4.2-5.4) M/uL Hgb 13.2 11.4 L (12.0-16.0) g/dL Hct 37.7 33.0 L (37-47) % Plt Count 251 190 (130-400) K/uL Neut # (Auto) 5.29 3.26 (1.4-6.5) K/uL Lymph # (Auto) 2.70 2.28 (1.2-3.4) K/uL Jay # (Auto) 0.29 0.32 (0.11-0.59) K/uL Eos # (Auto) 0.14 0.13 (0-0.5) K/uL Baso # (Auto) 0.04 0.01 (0-0.2) K/uL Comprehensive Metabolic Panel 07/02/20 07/03/20 Range/Units 11:00 07:01 Sodium 139 142 (136-145) mmol/L Potassium 3.1 L 3.1 L (3.5-5.1) mmol/L Chloride 107 111 H (98-107) mmol/L Carbon Dioxide 22 27 (21-32) mmol/L BUN 29 H 25 H (7-18) mg/dl Creatinine 1.52 H 1.10 D (0.6-1.2) mg/dl Glucose 206 H 112 H (70-99) mg/dl Calcium 10.0 9.2 (8.5-10.1) mg/dl AST 14 L (15-37) U/L ALT 22 (12-78) U/L Alkaline Phosphatase 65 (45-117) U/L Total Protein 7.9 (6.4-8.2) gm/dl Albumin 4.0 (3.4-5.0) gm/dl Intake and Output 07/02/20 07/03/20 07/03/20 22:59 06:59 14:59 Intake Total 250 / 990 240 / 990 Balance 250 / 990 240 / 990 Intake: IV 100 / 600 Magnesium Sulfate / D5w 1 gm In 100 / 100 100 ml @ 50 mls/hr IV Q2H STA Rx#:[id number] Oral 150 / 390 240 / 390 Other: # Unmeasured Voids 1 1 Weight 69.9 kg 69.8 kg Weight Measurement Method Built in Bedscale Standing Scale Diagnostic Findings Telemetry: Atrial fibrillation until around 6 PM yesterday, sinus rhythm since PG Care Time/CCT Total # of Minutes Spent Total Time Spent with Patient: Total time spent is greater than 50% in coordin ation of care (as documented) at patient's floor/unit and/or counseling patient: Coding Level of Care Code 87240 Office/OBS Consult Lvl 4 Diagnoses Paroxysmal atrial fibrillation I48.0 Coronary artery disease I25.10 Associated angina: unspecified whether angina present Coronary Disease-Associated Artery/Lesion type: [place] artery [place] vs. transplanted heart: unspecified whether [place] or transplanted heart Chest pain R07.9 Chest pain type: unspecified (1) Coronary artery disease Associated angina: unspecified whether angina present Coronary Disease- Associated Artery/Lesion type: [place] artery [place] vs. transplanted heart: unspecified whether [place] or transplanted heart Qualified Code(s): I25.10 - Atherosclerotic heart disease of [place] coronary artery without angina pectoris (2) Chest pain Chest pain type: unspecified Qualified Code(s): R07.9 - Chest pain, unspecified
--- NOTE | 2020-07-03 11:37 | XCELERA ---
[id number] \\[id number]
--- NOTE | 2020-07-03 15:54 | Discharge Summary ---
Date of Service July 03, 2020 Principal Diagnosis Episode of atrial fibrillation Discharge Exam Constitutional WD/WN, vitals as above Eyes EOM intact bilaterally; no conjunctival abnormality ENMT external ear and nose normal, oropharynx normal Neck trachea midline, no thyromegaly normal visual inspection Respiratory normal respiratory effort, lungs clear to auscultation no respiratory distress Cardiovascular Rate/Rhythm: regular rate and + bradycardic Heart Sounds: normal S1 and normal S2 Extremities: no edema Gastrointestinal (Abdomen) Inspection/Auscultation: abdomen normal to inspection; abdomen not distended Musculoskeletal no cyanosis or clubbing, extremities motor strength 5/5 Skin no rashes, warm and dry Neurologic moves all extremities and awake Psychiatric Orientation: alert, oriented to person and cooperative Discharge Data Allergies Allergy/AdvReac Type Severity Reaction Status Date / Time No Known Drug Allergies Allergy Verified 07/02/20 13:21 Consultations 07/02/20 12:16 ED Decision to Admit Stat 07/02/20 16:04 Consult Cardiology Routine Hospital Course (1) Afib: Presented with symptomatic, rapid atrial fibrillation with heart rates in the 140s-150s. - Patient with history of palpitations and a medical stress test that had short lived episode of AFIB, but has never had it on record since. - Discussed with Dr. Vo. Anticoagulation is a tough call because her CHADs-Vasc is 3, but she has very rare episodes of atrial fibrillation. In discussion, she will start apixaban for at least a month. Can discuss with Dr. Roche tomorrow regarding whether to use it long-term or limited time. (2) Coronary artery disease: Patient underwent cath with PCI in 2018. - KUMAR to ramus, non-obstructing CAD with RCA and small OM1 - Continue ASA - Continue high dose atorvastatin 40 mg - Troponin only to 0.05. Cardiology felt further investigation not needed. (3) Hypertension: BP today is 165/90. 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 (6) Type II diabetes mellitus: Hold Metformin while admitted - placed on SSI correction factor 35; 1:15 (7) Hyperthyroidism: Previous notes from 2012 reviewed state that patient was previously hyperthyroid and was managed with Tapazole and seen by endocrinology with Dr. Mullen She stopped Tapazole sometime around 2011 due to weight gain and continues without therapy - 0.9-1.8 trend over past 2 years - TSH was 0.7 this admission. (8) Hypokalemia: Potassium 3.1 and consistently low over many years Replacing now as above and continue daily dose in the morning Follow BMP, magnesium (9) Hypomagnesemia: Replacing with 1 g of IV magnesium sulfate Follow level in the morning (10) DVT prophylaxis: Apixaban Total Time Total Time Spent Total Time Spent (In Minutes): 35 Discharge Plan Discharge Items Patient Disposition: Home - Self-Care Reason For Visit: AFIB Discharge Diagnosis: Atrial fibrillation episode Activity: Resume your previous activity Non-emergency contact: Primary Care Provider and [employer] Call non-emergency contact if: your symptoms worsen Follow-up/Referrals: Hernandez Abreu MD [Primary Care Provider] - 07/15/20 11:30 am Jean Roche MD [Physician] - 07/04/20 (Please see Dr. Sung at your appointment tomorrow.) Diet: Carb Consistent or DM2 and Heart Healthy Addtl Attending Provider Instructions: Ms. Chamorro, You were admitted with an episode of atrial fibrillation which unfortunately causes quite a few symptoms for you. Dr. Vo saw you, and he felt that using anticoagulation for at least a month would be appropriate, but felt that Eliquis would be a safer option for you. This is a twice a day medication. Please start it tomorrow morning, then twice a day after that. Please see Dr. Sung in the office tomorrow. Dr. Vo felt that you and he could discuss the pros/cons of being on anticoagulation. Additionally, he can help adjust any medications needed to help control your heart rate. Finally, the heart ultrasound (echocardiogram) looked very good for you. Your heart is squeezing well. Pending Studies at Discharge: No Stand-Alone Forms: My [facility] [employer], Smoking Cessation Medications and DC Order Prescriptions: New apixaban 5 mg tablet 5 mg PO Q12H Qty: 60 RF: 0 Continued nifedipine 30 mg tablet extended release 24hr 30 mg PO TID Qty: 270 RF: 1 metoprolol succinate 100 mg tablet extended release 24 hr See Rx Instructions .ROUTE .COMPLEX Qty: 135 RF: 1 multivitamin Tablet 1 tab PO QAM RF: 0 aspirin 81 mg Tablet,Delayed Release (Dr/Ec) 81 mg PO QAM RF: 0 atorvastatin [Lipitor] 40 mg tablet 40 mg PO QAM RF: 0 potassium chloride 10 mEq capsule, extended release 10 meq PO QAM RF: 0 losartan-hydrochlorothiazide [Hyzaar] 100-25 mg tablet 1 tab PO QAM RF: 0 metformin 500 mg tablet extended release 24 hr 500 mg PO QAM RF: 0 Discharge Orders: Discharge Order (Routine); Ordered 07/03/20 Ordered By: Aquiles Talbert Admission Data Admit Date/Time: 07/02/20 13:50 Attending Provider: Aquiles Talbert Admit Provider: Ramonita Olivier Primary Care Provider: Hernandez Abreu Other Providers: Dwight Vo ; Aquiles Talbert Other Interventions: Discharge Summary Assessment (RN) Last Done: 07/03/20 13:20 Coding Level of Care Code 93675 OBS Care - Discharge Diagnoses Afib I48.91 Atrial fibrillation type: unspecified Coronary artery disease I25.10 Coronary Disease-Associated Artery/Lesion type: [place] artery [place] vs. transplanted heart: unspecified whether [place] or transplanted heart Associated angina: unspecified whether angina present Hypertension I10 Hypertension type: essential hypertension Dyslipidemia E78.5 CKD (chronic kidney disease), stage III N18.32 Chronic kidney disease stage 3 subtype: stage 3b (GFR 30-44) Type II diabetes mellitus E11.69 Diabetes mellitus nursing home insulin use: without manager long term care use Diabetes mellitus complication status: with other specified complication Hyperthyroidism E05.90 Hypokalemia E87.6 Hypomagnesemia E83.42 DVT prophylaxis Z29.9
== END 2020-07-03 18:35 | disposition home or self-care (01) ==
LOC: ED 10:42 → 2S 10:42 → SUATTDRO 13:50 → 2S 15:06

== ENCOUNTER 2024-07-17 18:44 | Inpatient (IN) ==
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
[2024-07-17] MEDS: OPTIRAY 320 100ml IV ONE (19:07)
[2024-07-17 19:13] LABS: iSTAT Creatinine 1.2 mg/dl (0.6-1.3); iSTAT Hemoglobin 14.3 g/dl (12.0-16.0); iSTAT Ionized Calcium 1.23 mmol/l (1.12-1.32); iSTAT Potassium 3.7 mmol/L (3.3-5.0)
[2024-07-17 19:14] LABS: Basophils # (auto) 0.07 K/uL (0.00-0.20); Basophils % (auto) 0.8 %; Eosinophils # (auto) 0.23 K/uL (0.00-0.50); Eosinophils % (auto) 2.6 %; Hematocrit (blood only) 40.8 % (37.0-47.0); Immature Granulocytes # (auto) 0.07 K/uL (0.01-0.20); Immature Granulocytes % (auto) 0.8 %; Lymphocytes # (auto) 2.68 K/uL (1.20-3.40); Lymphocytes % (auto) 30.1 %; Mean Corpuscular Hemoglobin 31.3 pg (25.0-34.0); Mean Corpuscular Hgb Conc 34.3 g/dL (32.0-36.0); Mean Corpuscular Volume 91.3 fL (80.0-100.0); Mean Platelet Volume 9.7 fL (9.4-12.4); Monocytes # (auto) 0.56 K/uL (0.11-0.59); Monocytes % (auto) 6.3 %; Neutrophils # (auto) 5.29 K/uL (1.40-6.50); Neutrophils % (auto) 59.4 %; Platelet Count 226 K/uL (130-400); RDW Coefficient of Variation 13.2 % (11.5-14.5); RDW Standard Deviation 43.3 fL (36.4-46.3); Red Blood Count 4.47 M/uL (4.20-5.40)
[2024-07-17 19:24] LABS: INR 0.9 (0.9-1.1); Partial Thromboplastin Ratio 0.9; Partial Thromboplastin Time 25 Seconds (21-31); Prothrombin Time 10.2 Seconds (9.0-12.0)
[2024-07-17 19:29] LABS: Albumin Globulin Ratio 1.2 (0.9-2); Albumin Level 4.4 gm/dl (3.4-5.0); BUN Creatinine Ratio 20.7 (10-20); Bilirubin,Total 0.6 mg/dl (0.2-1.0); Calcium 9.9 mg/dl (8.6-10.3); Creatinine Clr Calc Pharmacy 42.3 ml/min; Globulin 3.6 gm/dl (2.5-4.0); Potassium 3.3 mmol/L (3.5-5.1)
--- NOTE | 2024-07-17 19:32 | CT Scan Report ---
Clinical History: Trauma. Technique: Axial computed tomography images were obtained of the brain from the vertex to the skull base without intravenous contrast. Findings: There is no sign of intracranial hemorrhage. There is normal adame-white matter differentiation with no sign of acute or old infarction. No midline shift or other form of herniation is identified. There is no hydrocephalus. No obvious mass lesion is seen on this noncontrast examination. The visualized portions of the orbits and paranasal sinuses appear unremarkable. The mastoid air cells appear clear Impression: Unremarkable noncontrast CT of the brain Electronically signed by Warren Adamson 07-17-2024 7:27 PM
--- NOTE | 2024-07-17 19:32 | CT Scan Report ---
Clinical history: Trauma Technique: Axial computed tomography images were obtained of the chest after the administration of intravenous contrast Findings: There is mild linear atelectasis in the right middle lobe and there is mild lingular atelectasis also. There is no pleural effusion or pneumothorax. There is no sign of pulmonary fibrosis or other diffuse interstitial process. No endobronchial lesion is seen There is no mediastinal, hilar, or axillary adenopathy. The thoracic aorta appears unremarkable with no sign of aneurysm or dissection. There is no pericardial effusion. There is coronary atherosclerosis. There is a 1.6 cm rim-enhancing nodule or cyst in the left thyroid lobe There is an old fracture of the right anterior fifth rib. No definite acute fracture is seen. No focal osseous lesion is evident Impression: 1. Mild atelectasis in the right middle lobe and lingula 2. Coronary atherosclerosis 3. Indeterminate thyroid lesion. A follow-up thyroid ultrasound could be obtained ACT 112: Positive. There are findings on this exam that require communication between the performing entity and the patient following Patient Test Result Information Act ([place] ACT 112) guidelines. Electronically signed by Warren Adamson 07-17-2024 7:31 PM
[2024-07-17 19:35] LABS: Troponin I High Sensitivity 7.7 pg/ml (0-14)
--- NOTE | 2024-07-17 19:36 | CT Scan Report ---
Clinical history: Trauma Technique: Axial computed tomography images were obtained of the cervical spine without intravenous contrast. Sagittal and coronal reconstructions were obtained Findings: No fracture is identified. No listhesis is seen. No focal osseous lesion is evident. There is atlantoaxial osteoarthritis. At C2-3, no disc herniation is identified. There is no spinal stenosis. The neural foramen are patent At C3-4, there is mild spinal stenosis due to a disc bulge and a central disc protrusion. The neural foramen are patent At C4-5, there is spinal stenosis due to a disc bulge and a right paracentral disc protrusion. There is mild right neural foramen narrowing At C5-6, there is mild spinal stenosis due to a disc bulge and a central disc protrusion. The neural foramen are patent At C6-7, there is spinal stenosis due to a disc bulge. There is bilateral neural foramen narrowing that may affect the exiting C7 nerve roots At C7-T1, there is mild spinal stenosis due to a disc bulge and a left paracentral disc protrusion. There is mild left neural foramen narrowing Impression: 1. No definite cervical spine fracture 2. Spinal stenosis at C6-7 and to a lesser extent from C3-4 through C5-6 and at C7-T1 3. Bilateral neural foramen narrowing at C6-7 that may affect the exiting C7 nerve roots ACT 112: Positive. There are findings on this exam that require communication between the performing entity and the patient following Patient Test Result Information Act ([place] ACT 112) guidelines. Electronically signed by Warren Adamson 07-17-2024 7:36 PM
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
--- NOTE | 2024-07-17 19:42 | XRay Report ---
Clinical History: Trauma Technique: A frontal view of the chest was obtained Comparison is made to the prior examination dated 06/19/2024 Findings: There are no confluent pulmonary infiltrates. The heart size is at the upper limit of normal. No pleural effusion or pneumothorax is seen. There is no definite pulmonary nodule. No fracture is noted. No foreign body is seen Impression: No active disease Electronically signed by Warren Adamson 07-17-2024 7:42 PM
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
[2024-07-17 21:02] LABS: Appearance Urine Clear (Clear); Bacteria Urine Automated None Seen (None Seen); Bilirubin Urine Negative (Negative); Blood Urine Negative (Negative); Cast Urine Automated 0-2 /lpf (0-2); Color Urine Yellow; Epithelial Cell Urine Auto 0-2 /hpf (0-2); Glucose Urine UA Negative (Negative); Ketones Urine Negative (Negative); Leukocyte Esterase Urine 2+ (Negative); Nitrite Urine Negative (Negative); Protein Urine 1+ (Negative); RBC Urine Automated 0-2 /hpf (0-2); Specific Gravity Urine 1.025 (1.000-1.030); Urobilinogen Urine Negative (Negative); WBC Urine Automated 21-50 /hpf (0-5)
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
[2024-07-17] MEDS ORDERED: ACETAMINOPHEN 325 MG TAB PO PRN (23:04)
[2024-07-17] MEDS ORDERED: POLYETHYLENE (MIRALAX) 17 GM PACK PO PRN (23:04)
[2024-07-17] MEDS ORDERED: ALUMINUM/MAGNESIUM SUSP 30 ML UDC PO PRN (23:04)
[2024-07-17] MEDS ORDERED: MELATONIN 3 MG TAB PO PRN (23:04)
[2024-07-17] MEDS: POTASSIUM CHLORIDE 10 MEQ TABCR PO STA (23:20)
[2024-07-17] MEDS: oxyCODONE HCL IR 5 MG TAB (IMMEDIATE RELEASE) ONE (23:20)
[2024-07-17] MEDS ORDERED: GLUCAGON FOR INJ 1 MG VIAL SQ PRN (23:30)
[2024-07-17] MEDS ORDERED: GLUCOSE 10 TAB/TUBE PO PRN (23:30)
[2024-07-17] MEDS ORDERED: CARBOHYDRATES FOR HYPOGLYCEMIA PO PRN (23:30)
[2024-07-17] MEDS ORDERED: DEXTROSE 50% 50 ML SYRINGE IV PRN (23:30)
[2024-07-17] MEDS ORDERED: GLUCOSE 40% GEL 15 GM TUBE PO PRN (23:30)
[2024-07-17 23:52] LABS: Troponin I High Sensitivity 7.7 pg/ml (0-14)
[2024-07-18] LABS: Thyroid Stimulating Hormone 2.19 uIu/ml (0.300-4.500)
[2024-07-18] MEDS: ONDANSETRON INJ 2 MG/ML 2 ML VIAL IV PRN (00:21)
[2024-07-18 01:03] LABS: Hematocrit (blood only) 40.4 % (37.0-47.0); Hemoglobin 14.1 g/dl (12.0-16.0)
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
[2024-07-18 04:55] LABS: Basophils # (auto) 0.05 K/uL (0.00-0.20); Basophils % (auto) 0.5 %; Eosinophils # (auto) 0.09 K/uL (0.00-0.50); Hematocrit (blood only) 38.4 % (37.0-47.0); Hemoglobin 13.1 g/dl (12.0-16.0); Immature Granulocytes # (auto) 0.03 K/uL (0.01-0.20); Immature Granulocytes % (auto) 0.3 %; Lymphocytes # (auto) 1.71 K/uL (1.20-3.40); Lymphocytes % (auto) 18.1 %; Mean Corpuscular Hgb Conc 34.1 g/dL (32.0-36.0); Mean Platelet Volume 9.9 fL (9.4-12.4); Monocytes # (auto) 0.51 K/uL (0.11-0.59); Monocytes % (auto) 5.4 %; Neutrophils # (auto) 7.08 K/uL (1.40-6.50); Neutrophils % (auto) 74.7 %; Platelet Count 220 K/uL (130-400); RDW Coefficient of Variation 12.8 % (11.5-14.5); RDW Standard Deviation 42.5 fL (36.4-46.3); Red Blood Count 4.22 M/uL (4.20-5.40); White Blood Count 9.47 K/ul (4.8-10.8)
[2024-07-18 05:42] LABS: Albumin Globulin Ratio 1.4 (0.9-2); Albumin Level 4.3 gm/dl (3.4-5.0); BUN Creatinine Ratio 19.3 (10-20); Bilirubin,Total 0.9 mg/dl (0.2-1.0); Calcium 9.6 mg/dl (8.6-10.3); Creatinine Clr Calc Pharmacy 44.7 ml/min; Globulin 3.1 gm/dl (2.5-4.0); Total Protein 7.4 gm/dl (6.0-8.3); Troponin I High Sensitivity 7.4 pg/ml (0-14)
[2024-07-18] MEDS: oxyCODONE HCL IR 5 MG TAB (IMMEDIATE RELEASE) PO PRN (06:21)
--- NOTE | 2024-07-18 06:50 | Billing Data ---
Date of Service July 17, 2024 Coding Level of Care Code 69617 INT INP/OBS CARE
[2024-07-18] MEDS: LOSARTAN/HCTZ 50/12.5MG TAB PO SCH (08:22)
[2024-07-18] MEDS: NIFEdipine EXTENDED REL 30 MG TABCR PO SCH (08:22)
[2024-07-18] MEDS: METOPROLOL SUCC 50MG EXT REL TAB PO SCH (08:22)
[2024-07-18] MEDS: ATORVASTATIN 40 MG TAB PO SCH (08:22)
[2024-07-18] MEDS: POTASSIUM CHLORIDE CRTAB 20 MEQ TABCR PO SCH (08:23)
[2024-07-18] MEDS: INSULIN ASPART PER UNIT CHARGE SC SCH (08:38)
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
[2024-07-18] MEDS ORDERED: metFORMIN HCL ER 500 MG TABCR PO SCH (09:00)
--- NOTE | 2024-07-18 09:00 | XCELERA ---
[id number]
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
--- NOTE | 2024-07-18 13:12 | Electrocardiogram Report ---
Test Reason : Blood Pressure : */* mmHG Vent. Rate : 65 BPM Atrial Rate : 65 BPM P-R Int : 148 ms QRS Dur : 86 ms QT Int : 394 ms P-R-T Axes : 30 65 60 degrees QTcB Int : 409 ms Normal sinus rhythm Inferior infarct (cited on or before 09-Jan-2018) Poor R wave progression, consider anterior [place] vs. lead placement vs. LVH Abnormal ECG When compared with ECG of 19-Jun-2024 17:38, No significant change was found Confirmed by Gal Tyler ([id number]) on 07/18/2024 1:11:38 PM Referred By: REFERRED SELF Confirmed By: Gal Tyler
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
[2024-07-18] MEDS: LIDOCAINE 1% LOCAL 20 ML VIAL ONE (16:07)
[2024-07-18] MEDS: ceFAZolin 330 MG/ML 1 GM VIAL ONE (16:08)
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
--- NOTE | 2024-07-18 16:42 | Electrophysiology Report ---
Date of Service July 18, 2024 Electrophysiology Procedure Electrophysiology Procedure Report Preoperative diagnosis: Syncope, atrial fibrillation Postoperative diagnosis: Same Procedure: Loop recorder implantation Surgeon: Dwight Vo MD Estimated blood loss: 2 cc Complications: None Disposition: [facility] recovery Procedure details: After obtaining informed consent for the procedure, the patient was brought to the laboratory having had nothing by mouth after midnight. The patient was prepped and draped in the standard sterile manner for a loop recorder implantation. An area at the fourth left intercostal space and 1 cm left of the left sternal border was infiltrated with 1% lidocaine local anesthetic and a 0.5 cm incision was made through the skin. Using the loop recorder insertion tool the loop recorder was inserted through the incision at a 45 downward and leftward angle. The incision was closed with a subcutaneous continuous closure of 4-0 Vicryl followed by a running subcuticular skin closure of 4-0 Vicryl. Steri-Strips were applied and bacitracin ointment was placed on the incision. A dressing was applied. [facility] [place] Electrophysiology codes Indication for Procedure (1) Syncope: (2) Paroxysmal atrial fibrillation: Implantable Monitors Procedure 1: Implantable Monitors: [id number] Loop Recorder Implant
[2024-07-18 16:59] VITALS: BP 166/82; RESP 16; TEMP 98.2; O2SAT 94
[2024-07-18 18:00] VITALS: PULSE 62
== END 2024-07-18 18:52 | disposition home or self-care (01) | DRG 312 ==
LOC: ED 18:44 → 4W 21:26 → SUATTDRO 21:26 → 4W 22:20

== ENCOUNTER 2024-08-29 12:33 | Inpatient (IN) ==
[2024-08-29] MEDS: SODIUM CHLORIDE 0.9% 500 ML IV STA (13:06)
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
[2024-08-29] MEDS: POTASSIUM CHLORIDE CRTAB 20 MEQ TABCR PO STA ×2 (13:25→23:58)
--- NOTE | 2024-08-29 13:28 | XRay Report ---
SINGLE VIEW CHEST CLINICAL HISTORY: Chest pain. FINDINGS: An AP, portable, upright chest radiograph is compared to study dated chest x-ray dated 07/[address] dated 07/17/2024.. The heart is enlarged and noting atherosclerotic calcification of the thoracic aorta. The pulmonary vasculature is noncongested. Chronic interstitial thickening is similar to previous. There is mild bibasilar scarring/atelectasis. No airspace consoli dation or large pleural effusion is identified. No pneumothorax is seen. The skeletal structures are osteopenic. The bony thorax is grossly intact. IMPRESSION: Cardiomegaly with no acute cardiopulmonary abnormality identified. ACT 112: Negative or not required by law. Electronically signed by: Michele Michel M.D. 08/29/2024 1:27 PM
[2024-08-29 13:59] LABS: Hematocrit (blood only) 44.3 % (37.0-47.0); Hemoglobin 16.1 g/dl (12.0-16.0); Immature Granulocytes # (auto) 0.02 K/uL (0.01-0.20); Immature Granulocytes % (auto) 0.3 %; Mean Corpuscular Hemoglobin 32.1 pg (25.0-34.0); Mean Corpuscular Volume 88.2 fL (80.0-100.0); Platelet Count 269 K/uL (130-400); RDW Standard Deviation 38.8 fL (36.4-46.3); Red Blood Count 5.02 M/uL (4.20-5.40); White Blood Count 7.33 K/ul (4.8-10.8)
[2024-08-29 14:08] LABS: Anion Gap 18 (3-11); Blood Urea Nitrogen 19 mg/dl (6-23); Calcium 10.3 mg/dl (8.6-10.3); Carbon Dioxide 19 mmol/L (21-32); Chloride 102 mmol/L (98-107); Glucose 148 mg/dl (70-99(Fasting)); Potassium 3.2 mmol/L (3.5-5.1); Sodium 139 mmol/L (136-145)
[2024-08-29 14:11] LABS: Alanine Aminotransferase 21 U/L (7-52); Albumin Globulin Ratio 1.2 (0.9-2); Alkaline Phosphatase 96 U/L (34-104); Bilirubin,Total 1.2 mg/dl (0.2-1.0); Globulin 4.1 gm/dl (2.5-4.0); Magnesium 1.7 mg/dl (1.7-2.4); Total Protein 8.9 gm/dl (6.0-8.3)
[2024-08-29] MEDS: MAGNESIUM SULFATE / D5W 1 GM/100 ML BAG IV STA (14:45)
[2024-08-29] MEDS: SODIUM PHOSPHATE 15 MMOL in SODIUM CHLORIDE 0.9% 250 ML IV ONE (14:45)
[2024-08-29] MEDS: SODIUM PHOSPHATE 3 MMOL/1 ML INFUSION IV STA (14:50)
--- NOTE | 2024-08-29 15:50 | Electrocardiogram Report ---
Test Reason : Blood Pressure : */* mmHG Vent. Rate : 134 BPM Atrial Rate : * BPM P-R Int : * ms QRS Dur : 84 ms QT Int : 300 ms P-R-T Axes : * 81 -51 degrees QTcB Int : 448 ms Atrial fibrillation with rapid ventricular response Possible Inferior infarct (cited on or before 09-Jan-2018) Abnormal ECG When compared with ECG of 17-Jul-2024 18:58, Significant changes have occurred Confirmed by Gal Tyler ([id number]) on 08/29/2024 3:50:27 PM Referred By: REFERRED SELF Confirmed By: Gal Tyler
--- NOTE | 2024-08-29 15:55 | Electrocardiogram Report ---
Test Reason : Blood Pressure : */* mmHG Vent. Rate : 92 BPM Atrial Rate : * BPM P-R Int : * ms QRS Dur : 84 ms QT Int : 368 ms P-R-T Axes : * 29 15 degrees QTcB Int : 455 ms Atrial fibrillation Inferior infarct (cited on or before 09-Jan-2018) Abnormal ECG When compared with ECG of 29-Aug-2024 12:42, (unconfirmed) ST no longer depressed in Anterolateral leads Confirmed by Gal Tyler ([id number]) on 08/29/2024 3:54:57 PM Referred By: REFERRED SELF Confirmed By: Gal Tyler
[2024-08-29] MEDS: ACETAMINOPHEN 500 MG TAB PO STA (17:11)
[2024-08-29] MEDS ORDERED: MAGNESIUM HYDROXIDE SUSP 30 ML UDC PO PRN (19:58)
[2024-08-29] MEDS ORDERED: MELATONIN 3 MG TAB PO PRN (19:58)
[2024-08-29] MEDS ORDERED: ONDANSETRON INJ 2 MG/ML 2 ML VIAL IV PRN (19:58)
[2024-08-29] MEDS ORDERED: ALUMINUM/MAGNESIUM SUSP 30 ML UDC PO PRN (19:58)
[2024-08-29] MEDS ORDERED: POLYETHYLENE (MIRALAX) 17 GM PACK PO PRN (19:58)
[2024-08-29] MEDS: POT PHOSPHATE MONOBASIC W/ SOD TAB PO SCH (20:19)
[2024-08-29] MEDS: SODIUM CHLORIDE 0.9% 500 ML IV ONE ×2 (20:19→21:13)
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
[2024-08-29] MEDS ORDERED: ATROPINE SULFATE 0.1 MG/ML 10ML SYR IV PRN ×2 (21:13→21:29)
--- NOTE | 2024-08-29 21:36 | Communication Note ---
Date of Service: August 29, 2024 Called to [facility] stat - was in rate controlled afib rate 95-105 nurse witnessed 10 second pause on monitor. On entering room patient was near syncopal. after pause she had a few bradycardic beats then resumed NSR. Strip is printed and will be in chart Personally reviewed post-event EKG it is normal excepting her inferior Qs Asymptomatic on my arrival. Still NSR. Plan: admit as inpatient transcutaneous pacer pads on patient atropine PRN bradycardia <40 or symptomatic hold metoprolol succinate - last dose this AM. diltiazem 10 mg IV was given at 7pm avoid any further hawa blockers, fortunately in NSR currently consult cardiology - discussed with Dr. An npo after midnight additional 500 mL NS IV bolus discussed POC with patient, ED RN at bedside, bottom polisher, night coverage
[2024-08-29] MEDS ORDERED: NITROGLYCERIN SL 0.4 MG/TAB TAB SL PRN (22:20)
[2024-08-29] MEDS ORDERED: GLUCOSE 40% GEL 15 GM TUBE PO PRN (22:20)
[2024-08-29] MEDS ORDERED: DEXTROSE 50% 50 ML SYRINGE IV PRN (22:20)
[2024-08-29] MEDS ORDERED: GLUCOSE 10 TAB/TUBE PO PRN (22:20)
[2024-08-29] MEDS ORDERED: CARBOHYDRATES FOR HYPOGLYCEMIA PO PRN (22:20)
[2024-08-29] MEDS ORDERED: GLUCAGON FOR INJ 1 MG VIAL SQ PRN (22:20)
[2024-08-29 22:59] LABS: Anion Gap 7.0 (3-11); Blood Urea Nitrogen 20.0 mg/dl (6-23); Calcium 8.5 mg/dl (8.6-10.3); Carbon Dioxide 23.0 mmol/L (21-32); Chloride 112.0 mmol/L (98-107); Creatinine Clr Calc Pharmacy 47.9 ml/min; Glucose 108.0 mg/dl (70-99(Fasting)); Magnesium 1.8 mg/dl (1.7-2.4); Potassium 3.4 mmol/L (3.5-5.1); Sodium 142.0 mmol/L (136-145)
[2024-08-29] MEDS: INSULIN ASPART PER UNIT CHARGE SC SCH (23:14)
[2024-08-29] MEDS: APIXABAN 5 MG TABLET PO SCH (23:57)
[2024-08-30 06:18] LABS: Anion Gap 6.0 (3-11); Blood Urea Nitrogen 21.0 mg/dl (6-23); Calcium 8.5 mg/dl (8.6-10.3); Carbon Dioxide 24.0 mmol/L (21-32); Chloride 111.0 mmol/L (98-107); Creatinine Clr Calc Pharmacy 47.9 ml/min; Glucose 116.0 mg/dl (70-99(Fasting)); Magnesium 1.9 mg/dl (1.7-2.4); Potassium 3.7 mmol/L (3.5-5.1); Sodium 141.0 mmol/L (136-145)
[2024-08-30] MEDS: ATORVASTATIN 40 MG TAB PO SCH (08:56)
[2024-08-30] MEDS: ASPIRIN 81 MG ECTAB PO SCH (08:56)
[2024-08-30] MEDS: CHOLECALCIFEROL 25 MCG (1000 UNITS) TAB PO SCH (08:57)
[2024-08-30] MEDS: NIFEdipine EXTENDED REL 30 MG TABCR PO SCH (08:57)
[2024-08-30] MEDS: POTASSIUM CHLORIDE CRTAB 20 MEQ TABCR PO SCH (08:59)
[2024-08-30] MEDS: MAGNESIUM SULFATE / D5W 1 GM/100 ML BAG IV ONE (08:59)
[2024-08-30 11:16] LABS: Appearance Urine Clear (Clear); Bacteria Urine Automated None Seen (None Seen); Cast Urine Automated 0-2 /lpf (0-2); Epithelial Cell Urine Auto 0-2 /hpf (0-2); Glucose Urine UA Negative (Negative); RBC Urine Automated 0-2 /hpf (0-2)
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
--- NOTE | 2024-08-30 14:32 | Electrocardiogram Report ---
Test Reason : Blood Pressure : */* mmHG Vent. Rate : 60 BPM Atrial Rate : 60 BPM P-R Int : 160 ms QRS Dur : 84 ms QT Int : 398 ms P-R-T Axes : 62 31 63 degrees QTcB Int : 398 ms Normal sinus rhythm Inferior infarct (cited on or before 09-Jan-2018) Abnormal ECG When compared with ECG of 29-Aug-2024 14:51, Sinus rhythm has replaced Atrial fibrillation Vent. rate has decreased by 32 bpm Nonspecific T wave abnormality no longer evident in Inferior leads Nonspecific T wave abnormality now evident in Lateral leads QT has shortened Confirmed by Gal Tyler ([id number]) on 08/30/2024 2:32:11 PM Referred By: REFERRED SELF Confirmed By: Gal Tyler
[2024-08-31 06:23] LABS: Hematocrit (blood only) 37.0 % (37.0-47.0); Hemoglobin 13.1 g/dl (12.0-16.0); Immature Granulocytes # (auto) 0.01 K/uL (0.01-0.20); Immature Granulocytes % (auto) 0.2 %; Mean Corpuscular Hemoglobin 31.9 pg (25.0-34.0); Mean Corpuscular Volume 90.0 fL (80.0-100.0); Platelet Count 217 K/uL (130-400); RDW Standard Deviation 39.6 fL (36.4-46.3); Red Blood Count 4.11 M/uL (4.20-5.40); White Blood Count 5.85 K/ul (4.8-10.8)
[2024-08-31 06:36] LABS: Anion Gap 8.0 (3-11); Blood Urea Nitrogen 24.0 mg/dl (6-23); Calcium 8.7 mg/dl (8.6-10.3); Carbon Dioxide 23.0 mmol/L (21-32); Chloride 109.0 mmol/L (98-107); Creatinine Clr Calc Pharmacy 53.6 ml/min; Glucose 105.0 mg/dl (70-99(Fasting)); Magnesium 1.9 mg/dl (1.7-2.4); Potassium 3.7 mmol/L (3.5-5.1); Sodium 140.0 mmol/L (136-145)
[2024-08-31] MEDS: MAGNESIUM SULFATE / D5W 1 GM/100 ML BAG IV ONE (09:25)
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
--- NOTE | 2024-08-31 15:17 | Pre Anesthesia Assessment ---
Date of Service August 31, 2024 Pre Sedation Assessment Vital Signs Temp Pulse Pulse Resp BP Pulse Ox O2 Del Method 08/31/24 12:26 79 16 156/104 H 98 Room Air 08/31/24 12:07 36.5 C 66 20 157/88 H 99 Room Air 08/31/24 08:15 36.3 C L 66 19 162/88 H 96 Room Air 08/31/24 07:00 65 08/31/24 03:19 36.5 C 58 L 16 134/83 98 Room Air 08/30/24 23:43 36.6 C 53 L 17 132/83 99 Room Air 08/30/24 22:56 59 L 08/30/24 20:36 36.5 C 62 17 146/86 H 100 Room Air 08/30/24 20:00 Room Air Cardiovascular + regular rate and + regular rhythm Respiratory + respiratory effort normal Pre-Sedation Airway Assessment Smoking Status: Never smoker Hx Sleep Apnea: No Hx Difficult Intubation: No Short, Thick Neck: No Thyromental Distance: < 3.5 Finger Breadths Oral Cavity: + WNL Mallampati Class: II ASA: ASA2E NPO Status Date of Last Intake of Fluids: 08/30/24 Time of Last Intake of Fluids: 20:00 Date of Last Intake of Solid Food: 08/30/24 Time of Last Intake of Solid Foods: 20:00 Procedure Planning Contraindications for Sedation: none Current Medications Reviewed: Yes Notes The planned sedation has been discussed with the patient. Informed Consent was obtained. I have identified the patient, determined the appropriateness of sedation and have assessed the patient immediately prior to the procedure. All medicine(s) and interventions are by my order.
[2024-08-31] MEDS: WATER, STERILE FOR INJ 10 ML VIAL ONE (15:56)
[2024-08-31] MEDS: VANCOMYCIN HCL 1000MG/20ML VIAL ONE (15:56)
[2024-08-31] MEDS: LIDOCAINE 1% LOCAL 20 ML VIAL ONE (15:56)
[2024-08-31] MEDS: ceFAZolin 330 MG/ML 1 GM VIAL ONE (15:57)
[2024-08-31] MEDS: BUPIVACAINE 0.25% PF 30 ML VIAL ONE (15:57)
--- NOTE | 2024-08-31 16:33 | Post Anesthesia Assessment ---
Date of Service August 31, 2024 Post Sedation Assessment Vital Signs Temp Pulse Pulse Resp BP Pulse Ox O2 Del Method 08/31/24 12:26 79 16 156/104 H 98 Room Air 08/31/24 12:07 36.5 C 66 20 157/88 H 99 Room Air 08/31/24 08:15 36.3 C L 66 19 162/88 H 96 Room Air 08/31/24 07:00 65 08/31/24 03:19 36.5 C 58 L 16 134/83 98 Room Air 08/30/24 23:43 36.6 C 53 L 17 132/83 99 Room Air 08/30/24 22:56 59 L 08/30/24 20:36 36.5 C 62 17 146/86 H 100 Room Air 08/30/24 20:00 Room Air Recovery Score Activity: Moves 4 extremities Respiration: Deep Breath/Cough Circulation: +/-20% PreAnes Value Consciousness: Fully Awake Oxygen Saturation: O2 needed for >90% Discharge Sedation Level of Care: Fast Track Phase II Post Sedation Plan On clinical assessment, the patient appears to have tolerated the sedation without complications. Patient is recovering as anticipated. Patient will continue to be monitored by nursing and may be discharged when sedation discharge criteria are met per below protocol. Upon Completions of procedure up to 15 minutes continue every 5 minute vital signs and the P.A.R. score; then discharge to a Phase I or Fast Track to Phase II per the following guidelines: * Discharge Patient to appropriate Phase II area if PAR is 8 or greater or return to pre- procedure baseline. The post - procedure orders will be as directed. * If PAR score is less than 8 or not return to pre-procedure baseline then patient will follow Phase I monitoring till PAR is reached for Phase II. The Phase I may be done in procedure room or may call to secure a Phase I area. * If naloxone or flumazenil are used for reversal, hold in Phase I for continued monitoring from when last reversal dose was given for a minimum of 60 minutes or longer pending the nurse and/or physician discretion of patient condition before discharge to Phase II. Please call the Sedation Physician to re-evaluate and complete post-note for discharge to Phase II area. Do NOT discharge from procedure sedation or Phase 1 until post- sedation evaluation note is complete by procedure /sedation MD Sedation Discharge Instructions to be given to the patient at discharge to home.
--- NOTE | 2024-08-31 16:33 | Electrophysiology Report ---
Date of Service August 31, 2024 Electrophysiology Procedure Electrophysiology Procedure Report Procedure performed: Implantation of dual-chamber permanent pacemaker with left bundle pacing lead and removal of patient activated loop recorder. Staff fit model: Keith An MD Indication: Patient is 63-year-old woman with a history of atrial fibrillation and rapid ventricular rates. She has a history of syncope and long conversion pauses. She was felt to be a good candidate for permanent pacemaker due to symptomatic nonreversible sinus node dysfunction. Dual-chamber device was selected as she is currently in sinus rhythm and wished to maintain AV synchrony. Procedure in detail: The patient was informed of the risks benefits and alternatives to the intended procedure and she wished to proceed. She was taken to the electrophysiology suite in a fasting state. A preoperative antibiotic had been administered. The patient was monitored electrocardiographically throughout today's procedure and conscious sedation was administered per protocol. The left upper pectoral area was prepped and draped in usual sterile fashion. This area was anesthetized using subcutaneous administration of a xylocaine solution. An incision was made at this site and carried down to the prepectoralis fascia using sharp dissection. Electrocautery was also employed for dissection as well as for hemostasis. A device pocket was fashioned tissues above the pectoralis muscle. Subsequent to this maneuver the left axillary vein was accessed using modified Seldinger technique. A sheath was placed over guidewire and used to facilitate passage of a guiding catheter for mapping of the interventricular septum. Once an appropriate location was identified a pacing lead was advanced into the interventricular septum until the appropriate electrophysiologic characteristics were obtained. At this point the guiding catheter was removed. The proximal portion of the lead was then sutured the prepectoralis fascia using nonabsorbable suture. A sheath was placed over the remaining guidewire and used to facilitate passage of a pacing lead to the right atrium under fluoroscopic guidance. Adequate sensing and threshold parameters were obtained prior to active fixation of this lead to the endocardial surface. The proximal portion of the leads were then sutured the prepectoral fascia using nonabsorbable suture. The device pocket was irrigated with antibiotic solution. The leads were then attached to the device. The device and leads were then placed in the pocket and pocket was closed in 3 layers of absorbable suture. Steri-Strips and sterile dressing were applied. The device was tested noninvasively prior to conclusion the procedure. Subsequent to the device implant the area over the previously implanted loop recorder was prepped and draped in the usual sterile fashion. This area was anesthetized and subcutaneous ministration of a lidocaine solution. A small incision was made at the site to facilitate grasping of the previously implanted monitor. This was subsequently removed and the small incision closed with a single 4-0 Vicryl suture followed by a Steri- Strip and a sterile dressing. The patient tolerated procedure well there no immediate complications. Equipment used: New pulse generator: Clod Puller [employer]. Model number: [id number] serial number [id number] Right atrial lead: Clod Puller Medtronic. Model number: 5076 serial number [id number] serial [id number] Right ventricular lead: Clod Puller Medtronic. Model number: 3830 serial number [id number] Measured data: Right atrial lead: P waves measured 3.6 mV. Pacing threshold was 2.5 V at 0.4 ms with a pacing impedance of 779 ohms Right ventricular lead: R waves measured 14.3 mV. Pacing threshold 0.5 V at 0.4 ms with a pacing PINS of 798 ohms Impression: Successful implantation of dual-chamber permanent pacemaker with left bundle pacing lead [facility] Electrophysiology codes Pacing Procedure 1: Pacin Insert/Replace Pacer A & V Implantable Monitors Procedure 1: Implantable Monitors: [id number] Loop Recorder Explant PG Moderate Sedation Codes Moderate Sedation Codes Procedure 1: Sedation/Anesthesia: 64589 Mod Sedation by the same physician;Init15 Min Child Age 5 & Up Procedure 2: Sedation/Anesthesia: 04263 Mod Sedation by the same physician; Ea [id number] Minutes
[2024-08-31] MEDS: MIDAZOLAM HCL 5 MG/ML 1 ML VIAL ONE (16:41)
[2024-08-31] MEDS: INSULIN ASPART PER UNIT CHARGE SC STA (17:13)
[2024-08-31] MEDS ORDERED: Nursing to Pharmacy Communication SCH (17:15)
[2024-08-31] MEDS: INSULIN ASPART PER UNIT CHARGE SC SCH (21:36)
[2024-09-01] MEDS: ACETAMINOPHEN 325 MG TAB PO PRN (03:42)
[2024-09-01 05:52] LABS: Hematocrit (blood only) 35.6 % (37.0-47.0); Hemoglobin 12.5 g/dl (12.0-16.0); Immature Granulocytes # (auto) 0.02 K/uL (0.01-0.20); Immature Granulocytes % (auto) 0.3 %; Mean Corpuscular Hemoglobin 31.6 pg (25.0-34.0); Mean Corpuscular Volume 89.9 fL (80.0-100.0); Platelet Count 209 K/uL (130-400); RDW Standard Deviation 39.3 fL (36.4-46.3); Red Blood Count 3.96 M/uL (4.20-5.40); White Blood Count 6.85 K/ul (4.8-10.8)
[2024-09-01 06:08] LABS: Anion Gap 8.0 (3-11); Blood Urea Nitrogen 27.0 mg/dl (6-23); Calcium 8.5 mg/dl (8.6-10.3); Carbon Dioxide 22.0 mmol/L (21-32); Chloride 107.0 mmol/L (98-107); Creatinine Clr Calc Pharmacy 43.6 ml/min; Glucose 195.0 mg/dl (70-99(Fasting)); Magnesium 1.8 mg/dl (1.7-2.4); Potassium 3.9 mmol/L (3.5-5.1); Sodium 137.0 mmol/L (136-145)
--- NOTE | 2024-09-01 07:40 | Cardiology Progress Note ---
Date of Service September 01, 2024 Assessment & Plan (1) SSS (sick sinus syndrome): Plan: s/p pacemaker implant yesterday. No evident complication (CXR pending). Continue metoprolol. Nifedipine changed to diltiazem for improved rate control. Can restart Eliquis tomorrow. (2) Paroxysmal atrial fibrillation: Plan: - On a rate control and long-term anticoagulation strategy. (3) Coronary artery disease: Plan: - s/p ramus intermedius KUMAR, December 2017. - Continue medical management. (4) Hypertension: Plan: - Borderline control on current regimen. Plan Would be OK for discharge once CXR is available for review. I will arrange f/u next week. restrictions noted in DC Admission and Anticipated Discharge Date Admission Date: August 29, 2024 Subjective This morning the patient was feeling well. Some "heaviness" over the implant site. Physical Exam Physical Exam: Alert. Oriented Normal respiratory effort. No hematoma or bleeding at implant site. Minimal ecchymosis Results & Data Vital Signs (Past 12 Hours) Vital Signs Temp Pulse Pulse Resp BP Pulse Ox O2 Del Method 09/01/24 03:44 36.6 C 75 17 128/83 97 Room Air 08/31/24 23:17 92 H 08/31/24 23:12 36.6 C 86 17 126/85 96 Room Air 08/31/24 20:01 36.5 C 76 17 150/89 H 98 Room Air Diagnostic Findings Device interrogation revealed normal function on both leads CXR pending (3) Coronary artery disease Coronary Disease-Associated Artery/Lesion type: [place] artery [place] vs. transplanted heart: unspecified whether [place] or transplanted heart Associated angina: unspecified whether angina present Qualified Code(s): I25.10 - Atherosclerotic heart disease of [place] coronary artery without angina pectoris (4) Hypertension Hypertension type: essential hypertension Qualified Code(s): I10 - Essential (primary) hypertension
[2024-09-01 08:00] VITALS: RESP 20; TEMP 98.1; O2SAT 96
--- NOTE | 2024-09-01 08:17 | XRay Report ---
HISTORY: Pacemaker placement. TECHNIQUE: PA and lateral views of the chest. COMPARISON: Chest radiograph dated 08/29/2024. FINDINGS: Interval placement of a left subclavian approach dual-lead pacer. school bus monitor leads overlie the chest. Cardiac loop recorder has been removed. No focal lung consolidation. No pneumothorax or effusion. Normal heart size. Left-sided aortic arch containing atherosclerotic calcification. Midline trachea. No acute osseous abnormality. The included upper abdomen is unremarkable. IMPRESSION: Interval placement of a left subclavian approach dual-lead pacer. No visible pneumothorax. Electronically signed by Jose Manuel Coreas 09-01-2024 08:16 AM
[2024-09-01] MEDS: LOSARTAN POTASSIUM 50 MG TAB PO SCH (08:18)
[2024-09-01] MEDS: MAGNESIUM CHLORIDE W/CALCIUM 64MG DELAYED REL TAB PO SCH (08:56)
[2024-09-01] MEDS: POTASSIUM CHLORIDE 10 MEQ TABCR PO STA (08:56)
[2024-09-01] MEDS: METOPROLOL SUCC 50MG EXT REL TAB PO SCH (09:00)
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
[2024-09-01 10:12] VITALS: BP 126/81; PULSE 71
== END 2024-09-01 12:26 | disposition home or self-care (01) | DRG 243 ==
LOC: ED 12:33 → 4W 19:58 → SUATTDRO 19:58 → INTOOBSV 19:58 → 4W 21:50